=== PATIENT | male | born 1940 | race Caucasian/White ===

== ENCOUNTER 2017-12-05 16:00 | Emergency (ER) | payer MEDICARE, OTHER ==
[~2017-12-05] VITALS: Ht 190.5 cm; Wt 134.1 kg
[~2017-12-05 16:00] MED LIST: AMLO2.5T2 PO; ASPI-1265 PO; CIPR10DR LEFT EAR; FESO8TAB PO; LOSA25TA96 PO; LOVA20TA2 PO; METF850T2 PO
[2017-12-05 16:08] VITALS: BP 148/91
[2017-12-05] MEDS ORDERED: Cipro HC otic suspension 10ML bottle RIGHT EAR STA (16:30)
[2017-12-05] MEDS ORDERED: FLUC150T66 PO (17:00)
== END 2017-12-05 17:10 | disposition home or self-care (01) ==
LOC: ER 16:01
DX: H60.91 Unspecified otitis externa, right ear (principal); E78.00 Pure hypercholesterolemia, unspecified; I10 Essential (primary) hypertension; E11.9 Type 2 diabetes mellitus without complications; G89.29 Other chronic pain; Z98.890 Other specified postprocedural states; Z88.5 Allergy status to narcotic agent; Z79.82 Long term (current) use of aspirin; Z79.84 Long term (current) use of oral hypoglycemic drugs; Z79.899 Other long term (current) drug therapy
CPT/HCPCS: 99283

== ENCOUNTER 2018-11-04 16:44 | Emergency (ER) | payer MEDICARE, OTHER ==
[~2018-11-04] VITALS: Ht 193 cm; Wt 131.0 kg
[~2018-11-04 16:44] MED LIST changes: -CIPR10DR LEFT EAR; +METF-951 PO; -METF850T2 PO
[2018-11-04 16:51] VITALS: BP 133/72
[2018-11-04] MEDS ORDERED: acetaminophen 325mg tablet PO ONE ×3 (18:20→18:45)
[2018-11-04] MEDS ORDERED: LIDOcaine 5% patch TP ONE (18:20)
== END 2018-11-04 18:47 | disposition home or self-care (01) ==
LOC: ER 16:44
DX: M25.551 Pain in right hip (principal); G89.29 Other chronic pain; M54.9 Dorsalgia, unspecified; I10 Essential (primary) hypertension; E78.00 Pure hypercholesterolemia, unspecified; E11.9 Type 2 diabetes mellitus without complications; Z79.82 Long term (current) use of aspirin; Z88.6 Allergy status to analgesic agent
CPT/HCPCS: 99284

== ENCOUNTER 2018-12-29 17:10 | Observation (INO) | payer MEDICARE, OTHER ==
[~2018-12-29] VITALS: Ht 193 cm; Wt 134.0 kg
[2018-12-29 17:55] LABS: BASOPHILS % (AUTO) 0.4 % (0-1); EOSINOPHILS # (AUTO) 0.2 X10'3 (0-0.9); EOSINOPHILS % (AUTO) 3.3 % (0-6); HEMATOCRIT 43.1 % (42.0-52.0); LYMPHOCYTES # (AUTO) 2.3 X10'3 (1.1-4.8); LYMPHOCYTES % (AUTO) 31.8 % (21-51); MEAN CORPUSCULAR HEMOGLOBIN 32.3 PG (27.0-31.0); MEAN CORPUSCULAR HGB CONC 34.8 g/dL (33.0-36.5); MEAN CORPUSCULAR VOLUME 92.6 FL (78-98); MEAN PLATELET VOLUME 8.6 FL (7.4-10.4); MONOCYTES # (AUTO) 0.7 X10'3 (0-0.9); MONOCYTES % (AUTO) 9.7 % (2-12); NEUTROPHILS # (AUTO) 3.9 X10'3 (1.8-7.7); NEUTROPHILS % (AUTO) 54.8 % (42-75); PLATELET COUNT 217 X10'3 (140-440); RED BLOOD COUNT 4.66 X10'6 (4.70-6.10); RED CELL DISTRIBUTION WIDTH 13.6 % (11.5-14.5); WHITE BLOOD COUNT 7.1 X10'3 (4.5-11.0)
[2018-12-29 18:07] LABS: PARTIAL THROMBOPLASTIN TIME 26 SECONDS (22-32)
[2018-12-29 18:09] LABS: ALANINE AMINOTRANSFERASE 25 U/L (12-78); ALBUMIN 3.7 G/DL (3.4-5.0); ALBUMIN/GLOBULIN RATIO 1.1 (1.1-1.5); ALKALINE PHOSPHATASE 81 IU/L (46-116); ANION GAP 10 (8-16); ASPARTATE AMINO TRANSFERASE 16 U/L (10-37); BILIRUBIN,TOTAL 0.3 MG/DL (0.1-1.0); BLOOD UREA NITROGEN 23 MG/DL (7-18); BUN/CREATININE RATIO 12.8 (5.4-32.0); CALCIUM 8.8 MG/DL (8.5-10.1); CHLORIDE 102 MMOL/L (99-107); CREATININE 1.79 MG/DL (0.60-1.10); GLUCOSE 127 MG/DL (70-104); POTASSIUM 3.6 MMOL/L (3.5-5.1); SODIUM 139 MMOL/L (135-145); TOTAL CARBON DIOXIDE 27.3 MMOL/L (24-32); eGFR 37 ML/MIN
--- NOTE | 2018-12-29 18:37 | NUR ---
PT AMBULATED TO BATHROOM AND BACK WITH NO ASSIST AND STEADY GAIT, ROUGHLY 200 FEET
[2018-12-29] MEDS ORDERED: aspirin 325mg tablet PO ONE (19:15)
[2018-12-29] MEDS ORDERED: LANTUS SQ (19:30)
[2018-12-29] MEDS ORDERED: GABA800T11 PO (19:31)
[2018-12-29] MEDS ORDERED: OXYB5TAB16 PO (19:31)
[2018-12-29] MEDS ORDERED: LIRA0.6P2 SUBCUT (19:31)
[2018-12-29] MEDS ORDERED: METO50TA17 PO (19:31)
--- NOTE | 2018-12-29 19:55 | NUR ---
ASSISTING TELLING NEURO MD WITH SHAHANA
[2018-12-29] MEDS ORDERED: dextrose ORAL solution 15 GM/59 ML bottle PO PRN ×2 (20:15)
[2018-12-29] MEDS ORDERED: glucagon, human recombinant 1mg kit SUBCUT PRN (20:15)
[2018-12-29] MEDS ORDERED: mag hydrox/Alum hydrox/simeth 30ml oral suspension PO PRN (20:15)
[2018-12-29] MEDS ORDERED: magnesium 4gm in 100ml NS 100 ML IV PRN (20:15)
[2018-12-29] MEDS ORDERED: dextrose 50%-water 50ml dispensing syringe IV PRN ×2 (20:15)
[2018-12-29] MEDS ORDERED: magnesium 2GM in 50ml NS 50 ML IV PRN (20:15)
[2018-12-29] MEDS ORDERED: docusate sod 100mg capsule PO PRN (20:15)
[2018-12-29] MEDS ORDERED: potassium Cl 20 mEq SR tablet PO PRN (20:15)
[2018-12-29] MEDS ORDERED: MESSAGE TO PHARMACY PO ONE (20:15)
[2018-12-29] MEDS ORDERED: insulin Lispro (HumaLOG) vial - multi-dose SQ SCH (20:15)
[2018-12-29] MEDS ORDERED: ondansetron/PF 4mg/2ml inj IV PRN (20:15)
[2018-12-29] MEDS ORDERED: potassium CL 10mEq/100ml bag 100 ML IV PRN ×2 (20:15)
[2018-12-29] MEDS ORDERED: acetaminophen 325mg tablet PO PRN (20:15)
[2018-12-29] MEDS: normal saline 1000ml 1,000 ML IV SCH (20:27)
[2018-12-29 20:37] LABS: HEMOGLOBIN A1C 6.8 % (4.5-6.2)
[2018-12-29] MEDS ORDERED: insulin glargine (Lantus) pen - multi-dose SQ SCH (21:00)
[2018-12-29] MEDS ORDERED: atorvastatin 10mg tablet PO SCH (21:00)
[2018-12-29 22:00] VITALS: BP 142/87
--- NOTE | 2018-12-29 22:00 | NUR ---
I have received report from Jessie CULP and had the opportunity to ask questions and assume patient care.
[2018-12-29] MEDS: gabapentin 400mg capsule PO SCH (23:09)
[2018-12-30 02:00] VITALS: BP 138/70
[2018-12-30 05:00] VITALS: BP 142/73
--- NOTE | 2018-12-30 06:16 | NUR ---
Problems reprioritized. Patient report given, questions answered & plan of care reviewed with Judy CULP.
[2018-12-30 06:38] LABS: ALANINE AMINOTRANSFERASE 22 U/L (12-78); ALBUMIN 3.5 G/DL (3.4-5.0); ALBUMIN/GLOBULIN RATIO 1.2 (1.1-1.5); ALKALINE PHOSPHATASE 74 IU/L (46-116); ANION GAP 9 (8-16); ASPARTATE AMINO TRANSFERASE 16 U/L (10-37); BILIRUBIN,TOTAL 0.6 MG/DL (0.1-1.0); BLOOD UREA NITROGEN 20 MG/DL (7-18); BUN/CREATININE RATIO 12.9 (5.4-32.0); CALCIUM 8.4 MG/DL (8.5-10.1); CHLORIDE 103 MMOL/L (99-107); CREATININE 1.55 MG/DL (0.60-1.10); GLUCOSE 119 MG/DL (70-104); POTASSIUM 3.2 MMOL/L (3.5-5.1); SODIUM 140 MMOL/L (135-145); TOTAL PROTEIN 6.5 G/DL (6.4-8.2); eGFR 44 ML/MIN
--- NOTE | 2018-12-30 06:41 | NUR ---
received report from nawaf tejada
[2018-12-30 06:42] LABS: C-REACTIVE PROTEIN 0.07 MG/DL (0.0-0.5); CHOL/HDL RATIO 4.3 (0.00-4.99); CHOLESTEROL 125 MG/DL (0-200); HDL CHOLESTEROL 29 MG/DL (35-60); LDL CHOLESTEROL 76 MG/DL (50-100); MAGNESIUM 1.9 MG/DL (1.5-2.4); TRIGLYCERIDES 233 MG/DL (20-135)
[2018-12-30] MEDS: potassium Cl 20 mEq SR tablet PO PRN ×2 (07:27→13:53)
[2018-12-30] MEDS: gabapentin 400mg capsule PO SCH ×2 (07:29→17:07)
[2018-12-30] MEDS ORDERED: K and/or MAG REPLACEMENT MC SCH (08:00)
[2018-12-30] MEDS ORDERED: enoxaparin 40mg/0.4ml syringe SQ SCH (08:00)
[2018-12-30] MEDS ORDERED: oxybutynin 5mg tablet PO SCH ×2 (08:00→13:00)
[2018-12-30] MEDS ORDERED: aspirin 81mg tab.chew PO SCH (08:00)
[2018-12-30] MEDS ORDERED: losartan 25mg tablet PO SCH (08:00)
[2018-12-30] MEDS ORDERED: metoprolol tartrate 50mg tablet PO SCH (08:00)
[2018-12-30] MEDS: normal saline 1000ml 1,000 ML IV SCH (08:03)
[2018-12-30] MEDS ORDERED: pneumococcal 23-VAL P-sac vacc 25 mcg/0.5ml vial IMVAC ONE (10:00)
[2018-12-30] MEDS ORDERED: hyDRALAzine 10mg tablet PO PRN (10:45)
[2018-12-30] MEDS ORDERED: hydrALAZINE 20mg/ml inj. IV PRN (10:50)
[2018-12-30 11:22] VITALS: BP 142/82
[2018-12-30] MEDS ORDERED: OXYB10TA2 PO (12:11)
--- NOTE | 2018-12-30 17:14 | NUR ---
PT D/C WITH INSTRUCTIONS, UNDERSTANDING OF INSTRUCTIONS AND ALL BELONGINGS IN WHEELCHAIR ACCOMPANIED BY TO GO HOME AND F/U W/PCP NURSING STAFF MADE AN MD IMAGINING APPOINTMENT FOR PT FOR SaturdayDecember W/A CHECK IN TIME OF 1230
[2018-12-30] MEDS ORDERED: non-formulary drug (Oxybutynin Chloride (Ditropan Xl) 1 TAB) PO SCH (20:00)
== END 2018-12-30 17:15 | disposition home or self-care (01) ==
LOC: ER 17:11 → ORTHO 4S 22:22 → CMPBEDREQ 23:25
PROVIDERS: ADMIT Family Medicine; ATTEND Family Medicine
DX: R07.89 Other chest pain (principal); R13.0 Aphagia; E78.00 Pure hypercholesterolemia, unspecified; E11.9 Type 2 diabetes mellitus without complications; I10 Essential (primary) hypertension; N40.0 Benign prostatic hyperplasia without lower urinary tract symptoms; Z87.891 Personal history of nicotine dependence; E78.5 Hyperlipidemia, unspecified; Z79.82 Long term (current) use of aspirin; Z88.1 Allergy status to other antibiotic agents; G89.29 Other chronic pain
CPT/HCPCS: 36415; 70450; 71045; 80053; 80061; 82948; 83036; 83735; 84484; 85025; 85610; 85651; 85730; 86140; 87081; 90732; 92508; 92616; 93005; 93306; 93880; 96361; 96374; 96375; 97116; 97162; 97530; 99284; G0378; J0360; J7030; J1650; J1815

== ENCOUNTER 2019-11-30 19:05 | Emergency (ER) | payer MEDICARE, OTHER ==
[~2019-11-30] VITALS: Ht 193 cm; Wt 135.4 kg
[~2019-11-30 19:05] MED LIST changes: -AMLO2.5T2 PO; -FESO8TAB PO; +GABA800T11 PO; +LANTUS SQ; +LIRA0.6P2 SUBCUT; -METF-951 PO; +METO50TA17 PO; +OXYB10TA30 PO
[2019-11-30 20:21] LABS: BASOPHILS % (AUTO) 0.4 % (0-1); EOSINOPHILS % (AUTO) 0.3 % (0-6); HEMATOCRIT 42.7 % (42.0-52.0); HEMOGLOBIN 14.7 g/dl (14.0-17.9); LYMPHOCYTES # (AUTO) 1.3 X10'3 (1.1-4.8); LYMPHOCYTES % (AUTO) 14.5 % (21-51); MEAN CORPUSCULAR HEMOGLOBIN 31.9 PG (27.0-31.0); MEAN CORPUSCULAR HGB CONC 34.4 g/dL (33.0-36.5); MEAN CORPUSCULAR VOLUME 92.6 FL (78-98); MEAN PLATELET VOLUME 8.7 FL (7.4-10.4); MONOCYTES # (AUTO) 0.6 X10'3 (0-0.9); MONOCYTES % (AUTO) 6.9 % (2-12); NEUTROPHILS # (AUTO) 7.1 X10'3 (1.8-7.7); NEUTROPHILS % (AUTO) 77.9 % (42-75); PLATELET COUNT 193 X10'3 (140-440); RED BLOOD COUNT 4.61 X10'6 (4.70-6.10); RED CELL DISTRIBUTION WIDTH 13.6 % (11.5-14.5); WHITE BLOOD COUNT 9.1 X10'3 (4.5-11.0)
[2019-11-30 20:40] LABS: ALANINE AMINOTRANSFERASE 29 U/L (12-78); ALBUMIN 3.4 G/DL (3.4-5.0); ALBUMIN/GLOBULIN RATIO 1.1 (1.1-1.5); ALKALINE PHOSPHATASE 82 IU/L (46-116); ANION GAP 14 (8-16); ASPARTATE AMINO TRANSFERASE 21 U/L (10-37); BILIRUBIN,TOTAL 0.6 MG/DL (0.1-1.0); BLOOD UREA NITROGEN 20 MG/DL (7-18); BUN/CREATININE RATIO 11.2 (5.4-32.0); CALCIUM 8.2 MG/DL (8.5-10.1); CHLORIDE 105 MMOL/L (99-107); CREATININE 1.78 MG/DL (0.60-1.10); GLUCOSE 198 MG/DL (70-104); LIPASE 197 U/L (73-393); POTASSIUM 3.9 MMOL/L (3.5-5.1); SODIUM 141 MMOL/L (135-145); TOTAL CARBON DIOXIDE 22.3 MMOL/L (24-32); TOTAL PROTEIN 6.4 G/DL (6.4-8.2); eGFR 37 ML/MIN
[2019-11-30] MEDS ORDERED: loperamide 2mg capsule PO ONE (20:45)
[2019-11-30] MEDS ORDERED: normal saline 1000ML IV soln IVB ONE ×2 (20:45→22:05)
[2019-11-30 21:04] LABS: TROPONIN I < 0.04 NG/ML (0.0-0.05)
[2019-11-30] MEDS ORDERED: ONDA4TAB6 PO (22:12)
[2019-11-30] MEDS ORDERED: LOPE-144 PO (22:12)
[2019-11-30 22:30] LABS: CLARITY,URINE SLIGHTLY CLOUDY (Clear); COLOR,URINE YELLOW (Yellow); GLUCOSE, URINE NEGATIVE (Neg); KETONES,URINE 15 mg/dl (Neg); LEUKOCYTE ESTERASE ,URINE NEGATIVE (Neg); NITRITES, URINE NEGATIVE (Neg); OCCULT BLOOD,URINE NEGATIVE (Neg); PROTEIN,URINE 30 mg/dl (Neg); UA COLLECTION TYPE CLN CATCH MIDSTREAM; UROBILINOGEN,URINE 0.2 E.U/dL (0.2-1.0)
[2019-11-30 22:37] LABS: BACTERIA,URINE NONE SEEN /HPF (Neg); MUCUS STRANDS MANY /LPF (Neg); RBC,URINE NONE SEEN /HPF (0-2); SQUAMOUS EPITHELIAL CELL,UR MANY /LPF (FEW); WBC,URINE 0-4 /HPF (0-4)
[2019-11-30 22:50] VITALS: BP 164/87
== END 2019-11-30 22:55 | disposition home or self-care (01) ==
LOC: ER 19:06
DX: R19.7 Diarrhea, unspecified (principal); E86.0 Dehydration; E78.00 Pure hypercholesterolemia, unspecified; I10 Essential (primary) hypertension; E11.9 Type 2 diabetes mellitus without complications; G89.29 Other chronic pain; Z98.890 Other specified postprocedural states; Z72.89 Other problems related to lifestyle; Z88.5 Allergy status to narcotic agent; Z79.82 Long term (current) use of aspirin; Z79.4 Long term (current) use of insulin; Z79.899 Other long term (current) drug therapy
CPT/HCPCS: 36415; 80053; 81001; 83690; 84484; 85025; 93005; 96360; 99284; J7030

== ENCOUNTER 2020-04-11 17:41 | Inpatient (IN) | payer MEDICARE, OTHER ==
[~2020-04-11] VITALS: Ht 198.1 cm; Wt 134.0 kg
[~2020-04-11 17:41] MED LIST changes: +APIX5TAB3 PO; -ASPI-1265 PO; +ATOR40TA71 PO; +ATRNS; +DEC4T PO; +DICL100G30 TOP; +INSU100V43; -LOSA25TA96 PO; -LOVA20TA2 PO; -METO50TA17 PO; +NORT10CA81 PO; -OXYB10TA30 PO; +PANT-47 PO; +PROP10TA10 PO; +tamsulosin capsule PO
[2020-04-11] MEDS ORDERED: ipratropium/albuterol 3ml nebule NEB ONE (18:35)
[2020-04-11 18:46] LABS: BASOPHILS % (AUTO) 0.3 % (0-1); EOSINOPHILS % (AUTO) 0 % (0-6); HEMATOCRIT 45.4 % (42.0-52.0); HEMOGLOBIN 15.4 g/dl (14.0-17.9); LYMPHOCYTES # (AUTO) 0.7 X10'3 (1.1-4.8); LYMPHOCYTES % (AUTO) 8.4 % (21-51); MEAN CORPUSCULAR HEMOGLOBIN 31.1 PG (27.0-31.0); MEAN CORPUSCULAR HGB CONC 33.8 g/dL (33.0-36.5); MEAN CORPUSCULAR VOLUME 91.8 FL (78-98); MEAN PLATELET VOLUME 8.4 FL (7.4-10.4); MONOCYTES # (AUTO) 0.5 X10'3 (0-0.9); MONOCYTES % (AUTO) 5.6 % (2-12); NEUTROPHILS # (AUTO) 7.3 X10'3 (1.8-7.7); NEUTROPHILS % (AUTO) 85.7 % (42-75); PLATELET COUNT 188 X10'3 (140-440); RED BLOOD COUNT 4.95 X10'6 (4.70-6.10); RED CELL DISTRIBUTION WIDTH 13.7 % (11.5-14.5); WHITE BLOOD COUNT 8.6 X10'3 (4.5-11.0)
[2020-04-11 19:05] LABS: ABG BASE EXCESS -0.6 mmol/L (-2.0-2.0); ABG OXYGEN SATURATION 96.1 % (94-97); ABG PCO2 (T) 32.9 mmHg (35.0-48.0); ABG PO2 (T) 92.7 mmHg (75.0-100.0); ALLEN'S TEST POSITIVE; FCOHb 0.8 % (0.0-3.9); FO2Hb 95.3 % (94-97); PATIENT TEMPERATURE 38.5; TOTAL HEMOGLOBIN 15.3 G/dl (14.0-18.0)
[2020-04-11 19:09] LABS: ALANINE AMINOTRANSFERASE 71 U/L (12-78); ALBUMIN 2.7 G/DL (3.4-5.0); ALBUMIN/GLOBULIN RATIO 0.6 (1.1-1.5); ALKALINE PHOSPHATASE 94 IU/L (46-116); ANION GAP 10 (8-16); ASPARTATE AMINO TRANSFERASE 46 U/L (10-37); BILIRUBIN,TOTAL 0.9 MG/DL (0.1-1.0); BLOOD UREA NITROGEN 26 MG/DL (7-18); BUN/CREATININE RATIO 17.9 (5.4-32.0); CALCIUM 8.3 MG/DL (8.5-10.1); CHLORIDE 98 MMOL/L (99-107); CREATININE 1.45 MG/DL (0.60-1.10); GLUCOSE 206 MG/DL (70-104); POTASSIUM 3.8 MMOL/L (3.5-5.1); SODIUM 133 MMOL/L (135-145); TOTAL PROTEIN 7.1 G/DL (6.4-8.2); eGFR 47 ML/MIN
--- NOTE | 2020-04-11 19:45 | NUR ---
dr. rousseau at bedside assessing patient patient provided a pitcher of ice water no observable s/s of acute respiratoruy distress at this time will continue to monitor
[2020-04-11] MEDS ORDERED: potassium CL 10mEq/100ml bag 100 ML IV PRN ×2 (20:10)
[2020-04-11] MEDS ORDERED: mag hydrox/Alum hydrox/simeth 30ml oral suspension PO PRN (20:10)
[2020-04-11] MEDS ORDERED: acetaminophen 325mg tablet PO PRN (20:10)
[2020-04-11] MEDS ORDERED: magnesium Cl slow-release 64mg tablet PO PRN (20:10)
[2020-04-11] MEDS ORDERED: magnesium hydroxide 30ml (MOM) UD suspension PO PRN (20:10)
[2020-04-11] MEDS ORDERED: magnesium 4gm in 100ml NS 100 ML IV PRN (20:10)
[2020-04-11] MEDS ORDERED: magnesium 2GM in 50ml NS 50 ML IV PRN (20:10)
[2020-04-11] MEDS ORDERED: ondansetron/PF 4mg/2ml inj IV PRN (20:10)
[2020-04-11] MEDS ORDERED: potassium Cl 20 mEq SR tablet PO PRN ×2 (20:10)
[2020-04-11 22:16] VITALS: BP 176/95
[2020-04-12] VITALS (10 sets, daily range): BP systolic 136–199; BP diastolic 73–103
[2020-04-12] MEDS ORDERED: dexamethasone 4mg/ml inj IV SCH (02:00)
--- NOTE | 2020-04-12 02:35 | NUR ---
Administered 6mg of Dexamethasone. Barcode would not scan, verified by name and dosage on medication package against patient eMAR. Will notify pharmacy.
[2020-04-12] MEDS ORDERED: labetalol 20mg/4ml (5mg/ml) syringe IV ONE (02:40)
[2020-04-12] MEDS ORDERED: dextrose ORAL solution 15 GM/59 ML bottle PO PRN ×2 (02:45)
[2020-04-12] MEDS ORDERED: MESSAGE TO PHARMACY PO ONE (02:45)
[2020-04-12] MEDS ORDERED: glucagon, human recombinant 1mg kit SUBCUT PRN (02:45)
[2020-04-12] MEDS ORDERED: dextrose 50%-water 50ml dispensing syringe IV PRN ×2 (02:45)
--- NOTE | 2020-04-12 03:12 | NUR ---
Blood pressure 212/98, notified. Gave 10mg of Labetalol IV as ordered. At 15 minutes blood pressure at 183/94. Patient denies chest pain, shortness of breath or headache. Will continue to monitor. Addendum: 04/12/20 at 0316 by Isma Houston RN Blood pressure 212/98, notified. Gave 10mg of Labetalol IV as ordered. At 15 minutes post medication administration, blood pressure at 183/94. Patient denies chest pain, shortness of breath or headache. Will continue to monitor.
[2020-04-12] MEDS: hydrALAZINE 20mg/ml inj. IV PRN ×2 (05:43→12:59)
--- NOTE | 2020-04-12 06:33 | NUR ---
Problems reprioritized. Patient report given, questions answered & plan of care reviewed with Hazel CULP.
--- NOTE | 2020-04-12 06:45 | NUR ---
Patient in room PCU 3008. I have received report from Serenity CULP and had the opportunity to ask questions and assume patient care.
--- NOTE | 2020-04-12 06:48 | NUR ---
PAGER ID: [phone] MESSAGE: [phone] Sunny Harkins Covshanae dx. Nursing unable to get blood draws per report or blood cultures. Do you want a midline inserted? Hazel CULP [id number]
--- NOTE | 2020-04-12 07:52 | NUR ---
PAGER ID: [phone] MESSAGE: [phone] Sunny Harkins dx. Nursing unable to get blood draws per report or blood cultures. Do you want a midline inserted? Hazel CULP [id number]
[2020-04-12] MEDS ORDERED: FLO0.4C PO (07:59)
[2020-04-12] MEDS: methylPREDNISolone sod succ 125mg/2ml vial IV SCH ×2 (08:00→20:34)
[2020-04-12] MEDS: K and/or MAG REPLACEMENT MC SCH ×2 (08:00→20:00)
[2020-04-12] MEDS: apixaban 5mg tablet PO SCH ×2 (08:00→20:25)
--- NOTE | 2020-04-12 08:23 | NUR ---
Page sent to RT [phone], Torin Correa. 02 requirements increased. sating 88-90% on 6/L via NC. Please assess, no hx of COPD.
--- NOTE | 2020-04-12 08:31 | NUR ---
PAGER ID: [phone] MESSAGE: [id number], Torin Correa. 02 requirements increased. sating 88-90% on 6/L via NC. Hazel CULP [id number]
[2020-04-12 08:59] LABS: CLARITY,URINE CLEAR (Clear); COLOR,URINE YELLOW (Yellow); GLUCOSE, URINE >=1000 mg/dl (Neg); KETONES,URINE 40 mg/dl (Neg); LEUKOCYTE ESTERASE ,URINE NEGATIVE (Neg); NITRITES, URINE NEGATIVE (Neg); OCCULT BLOOD,URINE LARGE (Neg); PROTEIN,URINE 100 mg/dl (Neg)
[2020-04-12 09:05] LABS: UA COLLECTION TYPE CLN CATCH MIDSTREAM
[2020-04-12 09:11] LABS: BACTERIA,URINE FEW /HPF (Neg); CELLULAR CAST 0-4 /LPF (NEGATIVE); MUCUS STRANDS NONE SEEN /LPF (Neg); RBC,URINE NONE SEEN /HPF (0-2); SQUAMOUS EPITHELIAL CELL,UR FEW /LPF (FEW); WBC,URINE 0-4 /HPF (0-4)
[2020-04-12] MEDS: insulin Lispro (HumaLOG) vial - multi-dose SQ SCH ×4 (09:35→23:27)
[2020-04-12] MEDS: pantoprazole 40mg Tablet.DR PO SCH (09:42)
[2020-04-12] MEDS: gabapentin 400mg capsule PO SCH ×3 (09:42→23:11)
[2020-04-12] MEDS: tamsulosin 0.4mg capsule PO SCH (09:42)
[2020-04-12] MEDS: atorvastatin 20mg tablet PO SCH (09:42)
--- NOTE | 2020-04-12 10:43 | NUR ---
DM consult, written DM education provided 04/05. Additional education not indicated at this time. will follow up on date above for initial nutrition assessment. Addendum: 04/12/20 at [address] Amended: Links added.
[2020-04-12] MEDS ORDERED: lisinopril 10 MG tablet PO ONE (11:40)
[2020-04-12 12:47] LABS: BASOPHILS % (AUTO) 0.1 % (0-1); EOSINOPHILS % (AUTO) 0 % (0-6); HEMATOCRIT 42.4 % (42.0-52.0); HEMOGLOBIN 14.4 g/dl (14.0-17.9); LYMPHOCYTES # (AUTO) 0.4 X10'3 (1.1-4.8); LYMPHOCYTES % (AUTO) 3.5 % (21-51); MEAN CORPUSCULAR HEMOGLOBIN 31.2 PG (27.0-31.0); MEAN CORPUSCULAR HGB CONC 33.9 g/dL (33.0-36.5); MEAN PLATELET VOLUME 8.8 FL (7.4-10.4); MONOCYTES # (AUTO) 0.3 X10'3 (0-0.9); MONOCYTES % (AUTO) 2.4 % (2-12); NEUTROPHILS # (AUTO) 9.9 X10'3 (1.8-7.7); PLATELET COUNT 192 X10'3 (140-440); RED BLOOD COUNT 4.61 X10'6 (4.70-6.10); RED CELL DISTRIBUTION WIDTH 13.7 % (11.5-14.5); WHITE BLOOD COUNT 10.6 X10'3 (4.5-11.0)
--- NOTE | 2020-04-12 12:52 | NUR ---
PAGER ID: [phone] MESSAGE: [phone] Torin Correa, increased SOB noted, saturations 85% and increased WOB, Pt. placed on non rebreather, sating 88-90%. RT called. Hazel CULP [id number]
[2020-04-12 13:04] LABS: ALANINE AMINOTRANSFERASE 56 U/L (12-78); ALBUMIN 2.3 G/DL (3.4-5.0); ALBUMIN/GLOBULIN RATIO 0.5 (1.1-1.5); ALKALINE PHOSPHATASE 88 IU/L (46-116); ANION GAP 14 (8-16); ASPARTATE AMINO TRANSFERASE 40 U/L (10-37); BILIRUBIN,TOTAL 0.9 MG/DL (0.1-1.0); BLOOD UREA NITROGEN 28 MG/DL (7-18); BUN/CREATININE RATIO 17.6 (5.4-32.0); CALCIUM 8.3 MG/DL (8.5-10.1); CHLORIDE 98 MMOL/L (99-107); CREATININE 1.59 MG/DL (0.60-1.10); GLUCOSE 285 MG/DL (70-104); LACTATE DEHYDROGENASE 343 U/L (85-227); MAGNESIUM 2.3 MG/DL (1.5-2.4); POTASSIUM 4.1 MMOL/L (3.5-5.1); SODIUM 134 MMOL/L (135-145); TOTAL CARBON DIOXIDE 21.8 MMOL/L (24-32); TOTAL PROTEIN 6.8 G/DL (6.4-8.2); eGFR 42 ML/MIN
--- NOTE | 2020-04-12 13:07 | NUR ---
Patient placed on 12L high flow, RR 23, Sp02 91%, patient reports feeling less SOB at the moment. PRN hydralazine given, new blood pressure 153/82.
--- NOTE | 2020-04-12 13:17 | NUR ---
5F DUAL LUMEN MIDLINE PLACED WITH ULTRASOUND GUIDANCE, TIP ENDS MID-AXILLARY X'S 1 ATTEMPT WITH SUCCESS. LINE ASPIRATES BLOOD AND FLUSHES WITHOUT DIFFICULTY. UNABLE TO SAVE PICTURE FOR CHART HE IS A COVID PT. SUKUMARCHAPIN PICC RN
--- NOTE | 2020-04-12 15:18 | NUR ---
Patient remains sating from 91-93% on 12L high flow. Pt. is not in any noticable respiratory distress. BP is stable at 153/86. Pt. remains afebrile. Attempted to feed patient jello and he began desating into high 80's. Pt. took 2 mins to recover. Fluids encouraged. Will continue to monitor closely. Will ask for TKO fluids to keep midline patient. Urine output has been adequate thus far.
--- NOTE | 2020-04-12 15:44 | NUR ---
PAGER ID: [phone] MESSAGE: [phone] Torin Correa, can we get an order for IV fluids of TKO to keep midline patent. NA was 134. Hazel CULP [id number]
[2020-04-12] MEDS: normal saline 1000ml 1,000 ML IV SCH (16:43)
--- NOTE | 2020-04-12 17:02 | NUR ---
After taking medications, oxygen saturations dropped to 85%, not recovering quickly. Noted a good pleth. Increased oxygen to 13L high flow, patient is now maintaining oxygen saturations at 90-91 on 13L high flow. Pt. denies dyspnea. Pt. does not appear to be in distress and offers no complaints.
--- NOTE | 2020-04-12 17:05 | NUR ---
Room cleaned, linens changed. Pt. has no complaints. NS running at 20 ml/HR to maintain patency of midline. Will continue to monitor closely.
--- NOTE | 2020-04-12 17:49 | NUR ---
Patient was sleeping soundy during last rounds but oxygen saturations dropped to 82%, pt. denies feeling short of breath, RR 26. Good pleth noted. Oxygen increased to 15L via NC. Oxygen saturations holding at 93%, RR 21, respirations equal and unlabored currently. Will continue to monitor closely. notified.
--- NOTE | 2020-04-12 17:53 | NUR ---
PAGER ID: [phone] MESSAGE: [phone] Torin Correa, saturations dropped into low 80's, patient is now maxed out on 15L high flow. Sating low 90's now. LAUREN Oliva RN
--- NOTE | 2020-04-12 18:20 | NUR ---
Problems reprioritized. Patient report given, questions answered & plan of care reviewed with Isma RN and Ness RN. Dr. Haddad just left room and didn't feel patient was in distress. MD is aware that the patient may need to transfer to ICU if he does not maintain his saturations tonight. Pt. currently sating 90% on 15L high flow.
--- NOTE | 2020-04-12 18:30 | NUR ---
Patient in room PCU 3008. I have received report from ROBBI Oliva and had the opportunity to ask questions and assume patient care. Patient resting in bed. In no apparent distress other than decreased SPO2 of high 80's on 15L high flow. Safety measures in place, bed in low and locked position. Call light and personal items within reach. Will continue to monitor throughout shift.
[2020-04-12] MEDS ORDERED: apixaban 5mg tablet PO SCH (20:00)
[2020-04-12] MEDS ORDERED: propranolol 10mg tablet PO SCH (20:00)
[2020-04-12] MEDS: propranolol 10mg tablet PO SCH (20:25)
[2020-04-12] MEDS ORDERED: nortriptyline 10mg capsule PO SCH (21:00)
--- NOTE | 2020-04-12 21:00 | NUR ---
Patient pulse tachy, SPO2 in mid to high 80's at 15L High flow. RT notified.
[2020-04-12] MEDS: insulin glargine (Lantus) pen - multi-dose SQ SCH (23:20)
[2020-04-13] VITALS (12 sets, daily range): BP systolic 131–167; BP diastolic 68–93
--- NOTE | 2020-04-13 02:49 | NUR ---
Paged Dr. Pisano, RE: Torin Correa Rm [id number]. LAUREN- Jl pt. Respiratory failure. Pt. started day shift 04/12 on 5L NC. At start of night clerk auditor patient was on 15L high flow. At this time, patient is on high flow tree on 50L @ 100%, SPO2 93%. Isma [id number]
--- NOTE | 2020-04-13 03:59 | NUR ---
Paged respiratory. RE: Torin Correa, rm [id number]. FYI Increased O2 to 60L at 100% SPO2 at 89-91%
--- NOTE | 2020-04-13 04:25 | NUR ---
Paged Dr. Pisano. RE: Torin Correa RM [phone]. Patient SP02 at 89-90% on 60L at 100%. Please advise. Isma [phone] Dr. Pisano returned call within five minutes, stated she was okay with keeping SPO2 between 88-90%. She advised to monitor for an hour and let her know if patient cannot maintain these SPO2 parameters, at which time she will contact ICU and discuss admission to the unit.
[2020-04-13 05:09] LABS: BASOPHILS % (AUTO) 0 % (0-1); EOSINOPHILS % (AUTO) 0 % (0-6); HEMATOCRIT 41.1 % (42.0-52.0); HEMOGLOBIN 13.9 g/dl (14.0-17.9); LYMPHOCYTES # (AUTO) 0.3 X10'3 (1.1-4.8); LYMPHOCYTES % (AUTO) 2.9 % (21-51); MEAN CORPUSCULAR HEMOGLOBIN 31.2 PG (27.0-31.0); MEAN CORPUSCULAR HGB CONC 33.9 g/dL (33.0-36.5); MEAN CORPUSCULAR VOLUME 91.9 FL (78-98); MEAN PLATELET VOLUME 8.9 FL (7.4-10.4); MONOCYTES # (AUTO) 0.5 X10'3 (0-0.9); MONOCYTES % (AUTO) 3.9 % (2-12); NEUTROPHILS # (AUTO) 11.1 X10'3 (1.8-7.7); NEUTROPHILS % (AUTO) 93.2 % (42-75); PLATELET COUNT 201 X10'3 (140-440); RED BLOOD COUNT 4.47 X10'6 (4.70-6.10); RED CELL DISTRIBUTION WIDTH 13.5 % (11.5-14.5); WHITE BLOOD COUNT 11.9 X10'3 (4.5-11.0)
--- NOTE | 2020-04-13 05:17 | NUR ---
Patient SPO2 at 87% on 60L at 100%. MD to be notified. Placed non-rebreather on as well, SPO2 maintaining at 90%. Will continue to monitor awaiting MD orders.
--- NOTE | 2020-04-13 05:21 | NUR ---
notified pt requiring 60% O2 at 100% FIO2 plus NRB in order to keep sats at 88%. Dr. Pisano contacted June to come look at the patient and Stat ABG order placed.
[2020-04-13 05:22] LABS: ALANINE AMINOTRANSFERASE 45 U/L (12-78); ALBUMIN 2.1 G/DL (3.4-5.0); ALBUMIN/GLOBULIN RATIO 0.5 (1.1-1.5); ALKALINE PHOSPHATASE 79 IU/L (46-116); ANION GAP 9 (8-16); ASPARTATE AMINO TRANSFERASE 32 U/L (10-37); BILIRUBIN,TOTAL 0.7 MG/DL (0.1-1.0); BLOOD UREA NITROGEN 38 MG/DL (7-18); BUN/CREATININE RATIO 23.3 (5.4-32.0); C-REACTIVE PROTEIN 14.16 MG/DL (0.0-0.5); CALCIUM 8.2 MG/DL (8.5-10.1); CHLORIDE 100 MMOL/L (99-107); CREATININE 1.63 MG/DL (0.60-1.10); GLUCOSE 274 MG/DL (70-104); LACTATE DEHYDROGENASE 336 U/L (85-227); MAGNESIUM 2.5 MG/DL (1.5-2.4); POTASSIUM 3.9 MMOL/L (3.5-5.1); SODIUM 135 MMOL/L (135-145); TOTAL CARBON DIOXIDE 26.3 MMOL/L (24-32); TOTAL PROTEIN 6.3 G/DL (6.4-8.2); eGFR 41 ML/MIN
[2020-04-13 05:41] LABS: ABG BASE EXCESS 0.4 mmol/L (-2.0-2.0); ABG HCO3 23.5 mmol/L (22.0-26.0); ABG OXYGEN SATURATION 88.5 % (94-97); ABG PCO2 (T) 33.7 mmHg (35.0-48.0); ABG PO2 (T) 54.6 mmHg (75.0-100.0); ALLEN'S TEST POSITIVE; FLOW 60 L/min; FMetHb 0.3 % (0.0-1.5); FO2Hb 88.2 % (94-97); PATIENT TEMPERATURE 37.1; TOTAL HEMOGLOBIN 14.8 G/dl (14.0-18.0)
--- NOTE | 2020-04-13 05:55 | NUR ---
Radiology paged for stat xray.
--- NOTE | 2020-04-13 06:13 | NUR ---
Problems reprioritized. Patient report given, questions answered & plan of care reviewed with ROBBI Oliva. Patient resting in bed, high amounts of oxygenation needed at this time. MD aware. Radiology at bedside for stat x-ray, plans for transfer to the unit if space allows. Safety measures in place, bed in low and locked position. Continuous monitoring of vitals and SPO2. Will continue to monitor for remainder of shift.
--- NOTE | 2020-04-13 06:29 | NUR ---
Problems reprioritized. Patient report given, questions answered & plan of care reviewed with ROBBI Slaughter.
--- NOTE | 2020-04-13 07:18 | NUR ---
Patient in room PCU 3008. I have received report from Isma CULP and Ness RN and had the opportunity to ask questions and assume patient care.
[2020-04-13] MEDS: propranolol 10mg tablet PO SCH ×2 (07:34→20:02)
[2020-04-13] MEDS: apixaban 5mg tablet PO SCH ×2 (07:34→20:02)
[2020-04-13] MEDS: atorvastatin 20mg tablet PO SCH (07:34)
[2020-04-13] MEDS: methylPREDNISolone sod succ 125mg/2ml vial IV SCH ×2 (07:34→20:18)
[2020-04-13] MEDS: tamsulosin 0.4mg capsule PO SCH (07:34)
[2020-04-13] MEDS: lisinopril 10 MG tablet PO SCH (07:37)
[2020-04-13] MEDS: gabapentin 400mg capsule PO SCH ×2 (07:37→16:55)
[2020-04-13] MEDS: pantoprazole 40mg Tablet.DR PO SCH (07:37)
[2020-04-13] MEDS: insulin Lispro (HumaLOG) vial - multi-dose SQ SCH ×4 (07:58→21:50)
[2020-04-13] MEDS: K and/or MAG REPLACEMENT MC SCH ×2 (08:00→20:00)
--- NOTE | 2020-04-13 08:07 | NUR ---
Upon assessment, patient is resting quit comfortably actually. RR 17, HR 73, sp02 91% on 65L/100% fi02. BP decreased after administration of BP meds. Current BP is 159/90. Pt. offers no complaints, will continue to monitor closely.
[2020-04-13] MEDS ORDERED: cefepime 1GM in D5W 50mL 50 ML IV SCH (09:30)
[2020-04-13] MEDS ORDERED: cefepime 1GM/NS ADD-VANTAGE 100 ML IV ONE (10:05)
[2020-04-13] MEDS: linezolid 600mg tablet PO SCH ×2 (10:28→20:08)
--- NOTE | 2020-04-13 11:41 | NUR ---
DM consult: Patient's A1c already addressed, see below. DM consult, written DM education provided 04/05. Additional education not indicated at this time. will follow up on date above for initial nutrition assessment. Addendum: 04/13/20 at [address] Amended: Links added.
--- NOTE | 2020-04-13 12:34 | NUR ---
Patient has been sating low 90's on 65L/100% fi02. Pt. does not appear to be in any distress but he does have desaturations with speaking or moving. Pt. offers no complaints. Good fluid intake and urine output noted thus far. Will continue to monitor closely.
--- NOTE | 2020-04-13 14:29 | NUR ---
Problems reprioritized. Patient report given, questions answered & plan of care reviewed with Gurinder CULP. RT notified to assist with transporting patient.
--- NOTE | 2020-04-13 15:26 | NUR ---
Patient was transported to ICU, accompanied by primary RN, patient social worker palliative care and RT. Patient tolerated transportation well but did state that he felt worse than prior to transport. All precautions discussed with transporting members prior to transfer and precautions were followed. Pt. wore a non rebreather, a surgical mask and a face shield. Gruinder assumed care. Patient thanked staff for care provided.
--- NOTE | 2020-04-13 18:33 | NUR ---
Problems reprioritized. Patient report given, questions answered & plan of care reviewed with Mac RN.
--- NOTE | 2020-04-13 19:00 | NUR ---
RN Note -Pt is requesting Jensen catheter because condom catheter is not staying in place and he says it is difficult for him to use the urinal because he is weak. Pt is frustrated that Jensen catheter was removed. Explained risk for infection to pt.
[2020-04-13] MEDS: cefepime 1GM/NS ADD-VANTAGE 100 ML IV SCH (20:02)
--- NOTE | 2020-04-13 21:00 | NUR ---
RN Note -Pt's insulin was not in room and was not located on PCU. Had to request insulin from pharmacy and then go to pharmacy to get it. Pt had not eaten very much of his dinner due to poor appetite, so blood sugar was covered at bedtime with nighttime dose.
[2020-04-13] MEDS: insulin glargine (Lantus) pen - multi-dose SQ SCH (21:48)
[2020-04-14] VITALS (23 sets, daily range): BP systolic 121–151; BP diastolic 64–88
[2020-04-14] MEDS: gabapentin 400mg capsule PO SCH ×2 (00:16→08:34)
[2020-04-14 03:48] LABS: BASOPHILS % (AUTO) 0.2 % (0-1); EOSINOPHILS % (AUTO) 0 % (0-6); HEMATOCRIT 41.1 % (42.0-52.0); HEMOGLOBIN 13.8 g/dl (14.0-17.9); LYMPHOCYTES # (AUTO) 0.4 X10'3 (1.1-4.8); LYMPHOCYTES % (AUTO) 3.1 % (21-51); MEAN CORPUSCULAR HEMOGLOBIN 31.1 PG (27.0-31.0); MEAN CORPUSCULAR HGB CONC 33.5 g/dL (33.0-36.5); MEAN CORPUSCULAR VOLUME 92.6 FL (78-98); MONOCYTES # (AUTO) 0.4 X10'3 (0-0.9); MONOCYTES % (AUTO) 3.6 % (2-12); NEUTROPHILS # (AUTO) 11.6 X10'3 (1.8-7.7); NEUTROPHILS % (AUTO) 93.1 % (42-75); PLATELET COUNT 226 X10'3 (140-440); RED BLOOD COUNT 4.43 X10'6 (4.70-6.10); RED CELL DISTRIBUTION WIDTH 13.4 % (11.5-14.5); WHITE BLOOD COUNT 12.5 X10'3 (4.5-11.0)
[2020-04-14 04:06] LABS: ALANINE AMINOTRANSFERASE 51 U/L (12-78); ALBUMIN/GLOBULIN RATIO 0.5 (1.1-1.5); ALKALINE PHOSPHATASE 81 IU/L (46-116); ANION GAP 11 (8-16); ASPARTATE AMINO TRANSFERASE 43 U/L (10-37); BILIRUBIN,TOTAL 0.5 MG/DL (0.1-1.0); BLOOD UREA NITROGEN 53 MG/DL (7-18); BUN/CREATININE RATIO 30.6 (5.4-32.0); C-REACTIVE PROTEIN 6.34 MG/DL (0.0-0.5); CHLORIDE 100 MMOL/L (99-107); CREATININE 1.73 MG/DL (0.60-1.10); GLUCOSE 338 MG/DL (70-104); MAGNESIUM 2.6 MG/DL (1.5-2.4); POTASSIUM 4.1 MMOL/L (3.5-5.1); SODIUM 135 MMOL/L (135-145); TOTAL CARBON DIOXIDE 24.3 MMOL/L (24-32); TOTAL PROTEIN 6.1 G/DL (6.4-8.2); eGFR 38 ML/MIN
--- NOTE | 2020-04-14 06:48 | NUR ---
Patient in room CICU 2005. I have received report from ROBBI Saldaña and had the opportunity to ask questions and assume patient care.
[2020-04-14] MEDS: K and/or MAG REPLACEMENT MC SCH ×2 (07:02→20:00)
--- NOTE | 2020-04-14 08:15 | NUR ---
Blood sugar 365. Meter right after reading and before being able to hit accept.
[2020-04-14] MEDS: methylPREDNISolone sod succ 125mg/2ml vial IV SCH ×2 (08:34→20:49)
[2020-04-14] MEDS: cefepime 1GM/NS ADD-VANTAGE 100 ML IV SCH ×2 (08:34→20:50)
[2020-04-14] MEDS: propranolol 10mg tablet PO SCH ×2 (08:34→20:49)
[2020-04-14] MEDS: linezolid 600mg tablet PO SCH ×2 (08:34→21:15)
[2020-04-14] MEDS: pantoprazole 40mg Tablet.DR PO SCH (08:35)
[2020-04-14] MEDS: atorvastatin 20mg tablet PO SCH (08:35)
[2020-04-14] MEDS: tamsulosin 0.4mg capsule PO SCH (08:35)
[2020-04-14] MEDS: apixaban 5mg tablet PO SCH ×2 (08:35→20:49)
[2020-04-14] MEDS: lisinopril 10 MG tablet PO SCH (08:35)
[2020-04-14] MEDS: insulin Lispro (HumaLOG) vial - multi-dose SQ SCH ×3 (09:22→20:14)
--- NOTE | 2020-04-14 14:37 | NUR ---
Made 4 attempted to get Corpac. Patient refusing for more attempts. Will see if oncoming noc nurse can help.
--- NOTE | 2020-04-14 15:42 | NUR ---
Initial: Pt admit with acute resp failure and COVID. Pt currently on a CHO controlled diet documented to have refused most meals not meeting estimated nutrient needs. D/w MD at critical care rounds recommendation for ONS given poor PO intake. MD ordered Corpak placement for nutrition. Per RN notes four [address] Corpak. TF recommendations below for once Corpak placed. Pt with elevated BG levels likely r/t steroid rx, pt on glycemic protocol. No documented LBM, PRN bowel care available. Will continue to follow closely. Recommendations: 1) Consider diet liberalization to regular given poor PO intake 2) ONS if unable to place Corpak 3) Once Corpak placed and able to use, recommend continuous Vital AF with goal rate of 90 mL/hr. To begin at 20 mL/hr and advance by 20 mL Q8H as tolerated to goal rate 4) Once TF, additional water flush per MD given low serum Na 5) Once TF, prealbumin q Saturday/, daily weights 6) Routine bowel care Addendum: 04/14/20 at [address] Amended: Links added.
[2020-04-14] MEDS: normal saline 1000ml 1,000 ML IV SCH (15:50)
[2020-04-14 15:51] LABS: ABG BASE EXCESS -0.9 mmol/L (-2.0-2.0); ABG HCO3 22.1 mmol/L (22.0-26.0); ABG OXYGEN SATURATION 89.3 % (94-97); ABG PCO2 (T) 32.1 mmHg (35.0-48.0); ABG PO2 (T) 58.4 mmHg (75.0-100.0); ALLEN'S TEST POSITIVE; FLOW 70 L/min; FO2Hb 89.3 % (94-97); TOTAL HEMOGLOBIN 14.9 G/dl (14.0-18.0)
--- NOTE | 2020-04-14 18:40 | NUR ---
Problems reprioritized. Patient report given, questions answered & plan of care reviewed with Piotr RN.
--- NOTE | 2020-04-14 18:50 | NUR ---
RN Note -Pt refusing further attempts to place corpak
[2020-04-14] MEDS: lactobacillus rhamnosus 10,000 MMU CELLS/CAPSULE PO SCH (20:49)
[2020-04-14] MEDS: gabapentin 300mg capsule PO SCH (20:49)
[2020-04-14] MEDS: insulin glargine (Lantus) pen - multi-dose SQ SCH (21:41)
[2020-04-15] VITALS (24 sets, daily range): BP systolic 115–164; BP diastolic 64–123
[2020-04-15 02:59] LABS: BASOPHILS % (AUTO) 0.2 % (0-1); EOSINOPHILS % (AUTO) 0 % (0-6); HEMATOCRIT 41.3 % (42.0-52.0); LYMPHOCYTES # (AUTO) 0.5 X10'3 (1.1-4.8); MEAN CORPUSCULAR HEMOGLOBIN 31.3 PG (27.0-31.0); MEAN CORPUSCULAR HGB CONC 33.9 g/dL (33.0-36.5); MEAN CORPUSCULAR VOLUME 92.3 FL (78-98); MONOCYTES # (AUTO) 0.6 X10'3 (0-0.9); MONOCYTES % (AUTO) 4.4 % (2-12); NEUTROPHILS # (AUTO) 11.7 X10'3 (1.8-7.7); NEUTROPHILS % (AUTO) 91.4 % (42-75); PLATELET COUNT 239 X10'3 (140-440); RED BLOOD COUNT 4.47 X10'6 (4.70-6.10); RED CELL DISTRIBUTION WIDTH 13.7 % (11.5-14.5); WHITE BLOOD COUNT 12.8 X10'3 (4.5-11.0)
[2020-04-15 03:31] LABS: ALANINE AMINOTRANSFERASE 56 U/L (12-78); ALBUMIN/GLOBULIN RATIO 0.5 (1.1-1.5); ALKALINE PHOSPHATASE 75 IU/L (46-116); ANION GAP 8 (8-16); ASPARTATE AMINO TRANSFERASE 45 U/L (10-37); BILIRUBIN,TOTAL 0.5 MG/DL (0.1-1.0); BLOOD UREA NITROGEN 59 MG/DL (7-18); C-REACTIVE PROTEIN 2.69 MG/DL (0.0-0.5); CALCIUM 7.9 MG/DL (8.5-10.1); CHLORIDE 104 MMOL/L (99-107); CREATININE 1.64 MG/DL (0.60-1.10); GLUCOSE 91 MG/DL (70-104); MAGNESIUM 2.7 MG/DL (1.5-2.4); POTASSIUM 3.9 MMOL/L (3.5-5.1); SODIUM 138 MMOL/L (135-145); TOTAL CARBON DIOXIDE 26.1 MMOL/L (24-32); eGFR 41 ML/MIN
[2020-04-15] MEDS: K and/or MAG REPLACEMENT MC SCH ×2 (08:00→19:20)
[2020-04-15] MEDS: cefepime 1GM/NS ADD-VANTAGE 100 ML IV SCH ×2 (08:15→20:14)
[2020-04-15] MEDS: methylPREDNISolone sod succ 125mg/2ml vial IV SCH ×2 (08:16→20:14)
[2020-04-15] MEDS: tamsulosin 0.4mg capsule PO SCH (08:17)
[2020-04-15] MEDS: linezolid 600mg tablet PO SCH ×2 (08:17→20:15)
[2020-04-15] MEDS: lactobacillus rhamnosus 10,000 MMU CELLS/CAPSULE PO SCH ×2 (08:17→20:14)
[2020-04-15] MEDS: apixaban 5mg tablet PO SCH ×2 (08:17→20:14)
[2020-04-15] MEDS: pantoprazole 40mg Tablet.DR PO SCH (08:17)
[2020-04-15] MEDS: lisinopril 10 MG tablet PO SCH (08:17)
[2020-04-15] MEDS: gabapentin 300mg capsule PO SCH ×2 (08:17→20:14)
[2020-04-15] MEDS: atorvastatin 20mg tablet PO SCH (08:18)
[2020-04-15] MEDS: propranolol 10mg tablet PO SCH ×2 (08:18→20:32)
[2020-04-15] MEDS: insulin Lispro (HumaLOG) vial - multi-dose SQ SCH ×3 (09:58→21:01)
--- NOTE | 2020-04-15 11:23 | NUR ---
F/u: Several unsuccessful attempts at placing Corpak and pt refusing further attempts per RN notes. Additional nutrition intervention options d/w RN. Pt to receive Ensure Enlive TID for optimal kcal and protein while PO intake of meals is low. Also to trial a smoothie q lunch and a shake q dinner. D/w dietary to send chop all food. If PO intake of meals improves consider ONS change to Glucerna. Will continue to follow closely. Recommendations: 1) Consider diet liberalization to regular given poor PO intake 2) Ensure Enlive TID; consider ONS change to Glucerna if PO intake of meals improve 3) Trial strawberry smoothie q lunch, vanilla shake q dinner, chop all food 4) Routine bowel care 5) Scaled weights per rx Addendum: 04/15/20 at [address] Amended: Links added.
--- NOTE | 2020-04-15 12:05 | NUR ---
04/14/20 stated she has a pending covid result and she came into the hospital and brought patient belongings and was instructed by myself to go home and isolate until results were final. 04/15/20 reported to patient that she is indeed positive. Per Dr. Rojas's request, I contacted , Reema. Dr. Rojas asked that a staff member contact Reema and encourage her to stay home for 14 days from the day of her positive results. She became irate. After several minutes of conversation she began to understand the risk of exposure she caused to the hospital and agreed to follow up with primary physician and to isolate at home.
[2020-04-15] MEDS ORDERED: protein smoothie 8oz. (237ml) PO SCH (13:00)
[2020-04-15] MEDS ORDERED: protein shake 8oz. (237ml) PO SCH (13:00)
[2020-04-15] MEDS: lactose-reduced food (Ensure Enlive) - 237ml bottle PO SCH ×3 (13:16→20:02)
--- NOTE | 2020-04-15 18:17 | NUR ---
Problems reprioritized. Patient report given, questions answered & plan of care reviewed with Mac RN.
[2020-04-15] MEDS: insulin glargine (Lantus) pen - multi-dose SQ SCH (21:02)
[2020-04-16] VITALS (23 sets, daily range): BP systolic 112–186; BP diastolic 65–93
[2020-04-16 03:03] LABS: BASOPHILS % (AUTO) 0.1 % (0-1); EOSINOPHILS % (AUTO) 0 % (0-6); HEMATOCRIT 44.5 % (42.0-52.0); LYMPHOCYTES # (AUTO) 0.8 X10'3 (1.1-4.8); LYMPHOCYTES % (AUTO) 4.2 % (21-51); MEAN CORPUSCULAR HGB CONC 33.8 g/dL (33.0-36.5); MEAN CORPUSCULAR VOLUME 91.6 FL (78-98); MEAN PLATELET VOLUME 9.2 FL (7.4-10.4); MONOCYTES # (AUTO) 0.7 X10'3 (0-0.9); MONOCYTES % (AUTO) 4.2 % (2-12); NEUTROPHILS # (AUTO) 16.2 X10'3 (1.8-7.7); NEUTROPHILS % (AUTO) 91.5 % (42-75); PLATELET COUNT 329 X10'3 (140-440); RED BLOOD COUNT 4.86 X10'6 (4.70-6.10); RED CELL DISTRIBUTION WIDTH 13.5 % (11.5-14.5); WHITE BLOOD COUNT 17.7 X10'3 (4.5-11.0)
[2020-04-16 03:20] LABS: ALANINE AMINOTRANSFERASE 97 U/L (12-78); ALBUMIN 2.1 G/DL (3.4-5.0); ALBUMIN/GLOBULIN RATIO 0.5 (1.1-1.5); ALKALINE PHOSPHATASE 84 IU/L (46-116); ANION GAP 7 (8-16); ASPARTATE AMINO TRANSFERASE 65 U/L (10-37); BILIRUBIN,TOTAL 0.7 MG/DL (0.1-1.0); BLOOD UREA NITROGEN 52 MG/DL (7-18); BUN/CREATININE RATIO 39.1 (5.4-32.0); C-REACTIVE PROTEIN 2.16 MG/DL (0.0-0.5); CALCIUM 8.4 MG/DL (8.5-10.1); CHLORIDE 108 MMOL/L (99-107); CREATININE 1.33 MG/DL (0.60-1.10); LACTATE DEHYDROGENASE 440 U/L (85-227); MAGNESIUM 2.9 MG/DL (1.5-2.4); POTASSIUM 4.2 MMOL/L (3.5-5.1); SODIUM 140 MMOL/L (135-145); TOTAL CARBON DIOXIDE 25.4 MMOL/L (24-32); TOTAL PROTEIN 6.3 G/DL (6.4-8.2); eGFR 52 ML/MIN
[2020-04-16 03:41] LABS: GLUCOSE 49 MG/DL (70-104)
--- NOTE | 2020-04-16 04:00 | NUR ---
RN Note -Pt has had increased somnolence, bradycardia and occasional ectopy. Pt remains oriented x4 and was able to assist with turning for bath, but falls asleep almost immediately when not actively engaged. Notified Tigre Torres, received order for ABG, which was similar to previous ABG. Pt had hypoglycemic episode, which was treated and rechecked.
[2020-04-16 04:26] LABS: ABG BASE EXCESS 0.1 mmol/L (-2.0-2.0); ABG HCO3 23.4 mmol/L (22.0-26.0); ABG OXYGEN SATURATION 89.8 % (94-97); ABG PO2 (T) 55.4 mmHg (75.0-100.0); ALLEN'S TEST POSITIVE; FCOHb 0.1 % (0.0-3.9); FLOW 70 L/min; FMetHb 0.1 % (0.0-1.5); FO2Hb 89.6 % (94-97); PATIENT TEMPERATURE 36.1; TOTAL HEMOGLOBIN 15.3 G/dl (14.0-18.0)
--- NOTE | 2020-04-16 07:12 | NUR ---
Patient in room CICU 2006. I have received report from ROBBI Lester and had the opportunity to ask questions and assume patient care.
[2020-04-16] MEDS: cefepime 1GM/NS ADD-VANTAGE 100 ML IV SCH ×2 (07:55→19:44)
[2020-04-16] MEDS: methylPREDNISolone sod succ 125mg/2ml vial IV SCH ×2 (07:55→19:45)
[2020-04-16] MEDS: atorvastatin 20mg tablet PO SCH (07:56)
[2020-04-16] MEDS: lactobacillus rhamnosus 10,000 MMU CELLS/CAPSULE PO SCH ×2 (07:56→19:45)
[2020-04-16] MEDS: tamsulosin 0.4mg capsule PO SCH (07:56)
[2020-04-16] MEDS: lisinopril 10 MG tablet PO SCH (07:56)
[2020-04-16] MEDS: gabapentin 300mg capsule PO SCH ×2 (07:56→19:45)
[2020-04-16] MEDS: apixaban 5mg tablet PO SCH ×2 (07:57→19:46)
[2020-04-16] MEDS: pantoprazole 40mg Tablet.DR PO SCH (07:57)
[2020-04-16] MEDS: propranolol 10mg tablet PO SCH ×2 (08:00→19:46)
[2020-04-16] MEDS: linezolid 600mg tablet PO SCH ×2 (08:09→19:45)
[2020-04-16] MEDS: lactose-reduced food (Ensure Enlive) - 237ml bottle PO SCH ×3 (08:35→18:00)
[2020-04-16] MEDS: K and/or MAG REPLACEMENT MC SCH ×2 (08:35→20:00)
[2020-04-16] MEDS ORDERED: morphine 2 MG/ML inj. syringe IV PRN (11:45)
[2020-04-16] MEDS ORDERED: morphine 4 MG/ML inj SYRINge IV PRN (11:45)
[2020-04-16] MEDS ORDERED: morphine 4 MG/ML inj SYRINge ONE (11:47)
--- NOTE | 2020-04-16 13:23 | NUR ---
Attempted to prone pt. Pt refused and wanted to sit upright on highflow and non-rebreather. Saturating at 94%
--- NOTE | 2020-04-16 18:10 | NUR ---
Problems reprioritized. Patient report given, questions answered & plan of care reviewed with ROBBI Gramajo.
[2020-04-16] MEDS: insulin glargine (Lantus) pen - multi-dose SQ SCH (21:11)
[2020-04-17] VITALS (23 sets, daily range): BP systolic 122–166; BP diastolic 65–97
[2020-04-17 02:02] LABS: BASOPHILS % (AUTO) 0 % (0-1); EOSINOPHILS % (AUTO) 0 % (0-6); HEMATOCRIT 43.7 % (42.0-52.0); HEMOGLOBIN 14.8 g/dl (14.0-17.9); LYMPHOCYTES # (AUTO) 0.4 X10'3 (1.1-4.8); LYMPHOCYTES % (AUTO) 3.6 % (21-51); MEAN CORPUSCULAR HEMOGLOBIN 31.6 PG (27.0-31.0); MEAN CORPUSCULAR HGB CONC 33.9 g/dL (33.0-36.5); MEAN CORPUSCULAR VOLUME 93.3 FL (78-98); MEAN PLATELET VOLUME 9.4 FL (7.4-10.4); MONOCYTES # (AUTO) 0.5 X10'3 (0-0.9); MONOCYTES % (AUTO) 4.1 % (2-12); NEUTROPHILS # (AUTO) 11.2 X10'3 (1.8-7.7); NEUTROPHILS % (AUTO) 92.3 % (42-75); PLATELET COUNT 240 X10'3 (140-440); RED BLOOD COUNT 4.68 X10'6 (4.70-6.10); RED CELL DISTRIBUTION WIDTH 13.6 % (11.5-14.5); WHITE BLOOD COUNT 12.1 X10'3 (4.5-11.0)
[2020-04-17 02:04] LABS: ANION GAP 5 (8-16); BLOOD UREA NITROGEN 53 MG/DL (7-18); BUN/CREATININE RATIO 34.2 (5.4-32.0); CALCIUM 7.9 MG/DL (8.5-10.1); CHLORIDE 101 MMOL/L (99-107); CREATININE 1.55 MG/DL (0.60-1.10); GLUCOSE 370 MG/DL (70-104); MAGNESIUM 2.6 MG/DL (1.5-2.4); POTASSIUM 5.8 MMOL/L (3.5-5.1); SODIUM 131 MMOL/L (135-145); TOTAL CARBON DIOXIDE 24.7 MMOL/L (24-32); eGFR 43 ML/MIN
[2020-04-17] MEDS: normal saline 1000ml 1,000 ML IV SCH (07:51)
[2020-04-17] MEDS: cefepime 1GM/NS ADD-VANTAGE 100 ML IV SCH ×2 (07:51→19:29)
[2020-04-17] MEDS: lactose-reduced food (Ensure Enlive) - 237ml bottle PO SCH ×3 (08:00→18:00)
[2020-04-17] MEDS: K and/or MAG REPLACEMENT MC SCH ×2 (08:00→20:00)
[2020-04-17] MEDS: linezolid 600mg tablet PO SCH ×2 (08:01→19:30)
[2020-04-17] MEDS: methylPREDNISolone sod succ 125mg/2ml vial IV SCH ×2 (08:01→19:29)
[2020-04-17] MEDS: apixaban 5mg tablet PO SCH ×2 (08:02→19:30)
[2020-04-17] MEDS: lactobacillus rhamnosus 10,000 MMU CELLS/CAPSULE PO SCH ×2 (08:02→19:29)
[2020-04-17] MEDS: gabapentin 300mg capsule PO SCH ×2 (08:02→19:29)
[2020-04-17] MEDS: tamsulosin 0.4mg capsule PO SCH (08:02)
[2020-04-17] MEDS: propranolol 10mg tablet PO SCH ×2 (08:02→19:29)
[2020-04-17] MEDS: lisinopril 10 MG tablet PO SCH (08:02)
[2020-04-17] MEDS: pantoprazole 40mg Tablet.DR PO SCH (08:03)
[2020-04-17] MEDS: atorvastatin 20mg tablet PO SCH (08:03)
[2020-04-17] MEDS: insulin Lispro (HumaLOG) vial - multi-dose SQ SCH ×2 (08:57→13:05)
--- NOTE | 2020-04-17 19:08 | NUR ---
pt linens changed and bed bath performed. Pt states he is very tired. will monitor
--- NOTE | 2020-04-17 20:55 | NUR ---
pt's blood glucose 146 Lantus held as pt is refusing all meals.
[2020-04-17] MEDS: insulin glargine (Lantus) pen - multi-dose SQ SCH (21:00)
[2020-04-18] VITALS (24 sets, daily range): BP systolic 110–153; BP diastolic 54–92
[2020-04-18 02:58] LABS: BASOPHILS % (AUTO) 0 % (0-1); EOSINOPHILS % (AUTO) 0 % (0-6); HEMATOCRIT 44.8 % (42.0-52.0); HEMOGLOBIN 14.7 g/dl (14.0-17.9); LYMPHOCYTES # (AUTO) 0.8 X10'3 (1.1-4.8); LYMPHOCYTES % (AUTO) 5.7 % (21-51); MEAN CORPUSCULAR HEMOGLOBIN 30.7 PG (27.0-31.0); MEAN CORPUSCULAR HGB CONC 32.9 g/dL (33.0-36.5); MEAN CORPUSCULAR VOLUME 93.3 FL (78-98); MEAN PLATELET VOLUME 9.6 FL (7.4-10.4); MONOCYTES # (AUTO) 0.6 X10'3 (0-0.9); MONOCYTES % (AUTO) 3.8 % (2-12); NEUTROPHILS # (AUTO) 13.1 X10'3 (1.8-7.7); NEUTROPHILS % (AUTO) 90.5 % (42-75); PLATELET COUNT 298 X10'3 (140-440); RED CELL DISTRIBUTION WIDTH 13.7 % (11.5-14.5); WHITE BLOOD COUNT 14.5 X10'3 (4.5-11.0)
[2020-04-18 03:16] LABS: ANION GAP 8 (8-16); BLOOD UREA NITROGEN 55 MG/DL (7-18); BUN/CREATININE RATIO 36.9 (5.4-32.0); C-REACTIVE PROTEIN 2.54 MG/DL (0.0-0.5); CHLORIDE 104 MMOL/L (99-107); CREATININE 1.49 MG/DL (0.60-1.10); GLUCOSE 110 MG/DL (70-104); LACTATE DEHYDROGENASE 506 U/L (85-227); MAGNESIUM 2.8 MG/DL (1.5-2.4); POTASSIUM 5.4 MMOL/L (3.5-5.1); SODIUM 138 MMOL/L (135-145); eGFR 45 ML/MIN
--- NOTE | 2020-04-18 04:46 | NUR ---
pt drank one ensure tonight
--- NOTE | 2020-04-18 06:34 | NUR ---
Patient in room CICU 2006. I have received report from ROBBI Anders and had the opportunity to ask questions and assume patient care.
[2020-04-18] MEDS: K and/or MAG REPLACEMENT MC SCH ×2 (08:00→20:00)
[2020-04-18] MEDS: lisinopril 10 MG tablet PO SCH (08:26)
[2020-04-18] MEDS: lactobacillus rhamnosus 10,000 MMU CELLS/CAPSULE PO SCH ×2 (08:26→21:11)
[2020-04-18] MEDS: methylPREDNISolone sod succ 125mg/2ml vial IV SCH (08:26)
[2020-04-18] MEDS: apixaban 5mg tablet PO SCH ×2 (08:26→21:12)
[2020-04-18] MEDS: cefepime 1GM/NS ADD-VANTAGE 100 ML IV SCH ×2 (08:26→21:11)
[2020-04-18] MEDS: gabapentin 300mg capsule PO SCH ×2 (08:26→21:11)
[2020-04-18] MEDS: atorvastatin 20mg tablet PO SCH (08:27)
[2020-04-18] MEDS: lactose-reduced food (Ensure Enlive) - 237ml bottle PO SCH ×3 (08:27→18:00)
[2020-04-18] MEDS: pantoprazole 40mg Tablet.DR PO SCH (08:27)
[2020-04-18] MEDS: linezolid 600mg tablet PO SCH ×2 (08:27→21:12)
[2020-04-18] MEDS: propranolol 10mg tablet PO SCH ×2 (08:27→21:12)
[2020-04-18] MEDS: tamsulosin 0.4mg capsule PO SCH (08:27)
[2020-04-18] MEDS: insulin Lispro (HumaLOG) vial - multi-dose SQ SCH ×2 (08:54→13:27)
[2020-04-18 12:25] LABS: ABG HCO3 21.7 mmol/L (22.0-26.0); ABG PCO2 (T) 34.3 mmHg (35.0-48.0); ABG PO2 (T) 61.7 mmHg (75.0-100.0); ALLEN'S TEST POSITIVE; FCOHb 0.1 % (0.0-3.9); FLOW 55 L/min; FMetHb 0.3 % (0.0-1.5); FO2Hb 90.6 % (94-97); PATIENT TEMPERATURE 36.8; TOTAL HEMOGLOBIN 15.6 G/dl (14.0-18.0)
[2020-04-18] MEDS: dronabinol 2.5mg capsule PO SCH ×2 (12:32→21:47)
--- NOTE | 2020-04-18 12:51 | NUR ---
Reassessment 04/18: pt did successfully consume 100% of three ensure enlive drinks and 50% of one ensure this morning, however has refused for past three meals. Very poor PO intake r/t shortness of breath and difficulty breathing, ate 50% of protein at lunch. Observed pt at critical care rounds able to tolerate drinking water from a straw, per bedside RN pt drinks at least a liter per day. Spoke with pt via telephone and encouraged PO intake and encouraged to drink oral nutrition supplement, suggested to RN to pour ensure into containers used for water and for patient to drink with a straw to improve intake. Last BM 04/13, not receiving bowel care. May benefit from bowel care in view of receiving pain medications. Recommendations: 1) Consider diet liberalization to regular given poor PO intake 2) Ensure Enlive TID 3) Trial strawberry smoothie q lunch, vanilla shake q dinner, chop all food 4) Routine bowel care 5) Scaled weights per rx Addendum: 04/18/20 at [address] Amended: Links added.
--- NOTE | 2020-04-18 18:20 | NUR ---
Patient in room CICU 2006. I have received report from Aby CULP and had the opportunity to ask questions and assume patient care.
[2020-04-18] MEDS: methylPREDNISolone sod succ/PF 40mg inj. IV SCH (21:11)
[2020-04-18] MEDS: furosemide 40mg/4ml inj IV SCH (21:11)
[2020-04-18] MEDS: insulin glargine (Lantus) pen - multi-dose SQ SCH (21:48)
[2020-04-19] VITALS (24 sets, daily range): BP systolic 116–165; BP diastolic 59–84
[2020-04-19] MEDS: normal saline 1000ml 1,000 ML IV SCH (02:22)
--- NOTE | 2020-04-19 06:45 | NUR ---
Patient in room CICU 2006. I have received report from Tayler CULP and had the opportunity to ask questions and assume patient care.
--- NOTE | 2020-04-19 07:00 | NUR ---
Problems reprioritized. Patient report given, questions answered & plan of care reviewed with SUNIL CULP.
[2020-04-19 07:26] LABS: BASOPHILS % (AUTO) 0.1 % (0-1); EOSINOPHILS % (AUTO) 0.1 % (0-6); HEMATOCRIT 46.8 % (42.0-52.0); HEMOGLOBIN 15.7 g/dl (14.0-17.9); LYMPHOCYTES % (AUTO) 6.9 % (21-51); MEAN CORPUSCULAR HEMOGLOBIN 31.3 PG (27.0-31.0); MEAN CORPUSCULAR HGB CONC 33.5 g/dL (33.0-36.5); MEAN CORPUSCULAR VOLUME 93.5 FL (78-98); MEAN PLATELET VOLUME 9.2 FL (7.4-10.4); MONOCYTES # (AUTO) 0.4 X10'3 (0-0.9); MONOCYTES % (AUTO) 2.7 % (2-12); NEUTROPHILS # (AUTO) 13.1 X10'3 (1.8-7.7); NEUTROPHILS % (AUTO) 90.2 % (42-75); PLATELET COUNT 244 X10'3 (140-440); RED BLOOD COUNT 5.01 X10'6 (4.70-6.10); RED CELL DISTRIBUTION WIDTH 13.5 % (11.5-14.5); WHITE BLOOD COUNT 14.6 X10'3 (4.5-11.0)
[2020-04-19] MEDS: K and/or MAG REPLACEMENT MC SCH ×2 (08:00→20:00)
[2020-04-19] MEDS: insulin Lispro (HumaLOG) vial - multi-dose SQ SCH ×3 (08:08→19:43)
[2020-04-19 08:26] LABS: ANION GAP 9 (8-16); BLOOD UREA NITROGEN 58 MG/DL (7-18); BUN/CREATININE RATIO 36.5 (5.4-32.0); CALCIUM 8.4 MG/DL (8.5-10.1); CHLORIDE 104 MMOL/L (99-107); CREATININE 1.59 MG/DL (0.60-1.10); GLUCOSE 131 MG/DL (70-104); POTASSIUM 5.5 MMOL/L (3.5-5.1); SODIUM 136 MMOL/L (135-145); TOTAL CARBON DIOXIDE 23.1 MMOL/L (24-32); eGFR 42 ML/MIN
[2020-04-19] MEDS: linezolid 600mg tablet PO SCH ×2 (08:35→20:01)
[2020-04-19] MEDS: furosemide 40mg/4ml inj IV SCH ×2 (08:35→20:00)
[2020-04-19] MEDS: pantoprazole 40mg Tablet.DR PO SCH (08:35)
[2020-04-19] MEDS: propranolol 10mg tablet PO SCH ×2 (08:35→20:01)
[2020-04-19] MEDS: lactobacillus rhamnosus 10,000 MMU CELLS/CAPSULE PO SCH ×2 (08:35→20:01)
[2020-04-19] MEDS: tamsulosin 0.4mg capsule PO SCH (08:35)
[2020-04-19] MEDS: methylPREDNISolone sod succ/PF 40mg inj. IV SCH ×2 (08:35→20:01)
[2020-04-19] MEDS: gabapentin 300mg capsule PO SCH ×2 (08:35→20:02)
[2020-04-19] MEDS: cefepime 1GM/NS ADD-VANTAGE 100 ML IV SCH ×2 (08:35→20:15)
[2020-04-19] MEDS: apixaban 5mg tablet PO SCH ×2 (08:36→20:01)
[2020-04-19] MEDS: atorvastatin 20mg tablet PO SCH (08:36)
[2020-04-19] MEDS: lisinopril 10 MG tablet PO SCH (08:36)
[2020-04-19] MEDS: dronabinol 2.5mg capsule PO SCH ×3 (08:37→17:21)
[2020-04-19] MEDS: lactose-reduced food (Ensure Enlive) - 237ml bottle PO SCH ×3 (08:39→17:22)
--- NOTE | 2020-04-19 15:59 | NUR ---
F/u: Pt with 100% PO intake of ONS at both meals today and documented with 100% PO intake of protein at both lunch and dinner. Pt now receiving routine Marinol. Still no BM since 04/13, with PRN bowel care available however not documented to be provided. D/w RN. Routine bowel care now added to med list. Will continue to follow closely. Recommendations: 1) Consider diet liberalization to regular given poor PO intake 2) Ensure Enlive TID 3) Trial strawberry smoothie q lunch, vanilla shake q dinner, chop all food 4) Appetite stimulant per MD 5) Routine bowel care 6) Scaled weights per rx Addendum: 04/19/20 at [address] Amended: Links added.
--- NOTE | 2020-04-19 18:08 | NUR ---
Problems reprioritized. Patient report given, questions answered & plan of care reviewed with Mathieu CULP.
--- NOTE | 2020-04-19 18:10 | NUR ---
Patient in room CICU 2006. I have received report from Becky CULP and had the opportunity to ask questions and assume patient care.
[2020-04-19] MEDS: polyethylene glycol 3350 17gm powd pack PO SCH (21:28)
[2020-04-19] MEDS: sennosides 8.6mg tablet PO SCH (21:28)
[2020-04-19] MEDS: insulin glargine (Lantus) pen - multi-dose SQ SCH (21:53)
[2020-04-20] VITALS (24 sets, daily range): BP systolic 115–165; BP diastolic 60–88
[2020-04-20 02:47] LABS: BASOPHILS % (AUTO) 0.1 % (0-1); EOSINOPHILS % (AUTO) 0.1 % (0-6); HEMATOCRIT 45.7 % (42.0-52.0); HEMOGLOBIN 15.4 g/dl (14.0-17.9); LYMPHOCYTES # (AUTO) 0.8 X10'3 (1.1-4.8); LYMPHOCYTES % (AUTO) 5.5 % (21-51); MEAN CORPUSCULAR HEMOGLOBIN 31.1 PG (27.0-31.0); MEAN CORPUSCULAR HGB CONC 33.6 g/dL (33.0-36.5); MEAN CORPUSCULAR VOLUME 92.5 FL (78-98); MEAN PLATELET VOLUME 9.4 FL (7.4-10.4); MONOCYTES # (AUTO) 0.6 X10'3 (0-0.9); MONOCYTES % (AUTO) 4.2 % (2-12); NEUTROPHILS # (AUTO) 12.5 X10'3 (1.8-7.7); NEUTROPHILS % (AUTO) 90.1 % (42-75); PLATELET COUNT 268 X10'3 (140-440); RED BLOOD COUNT 4.94 X10'6 (4.70-6.10); RED CELL DISTRIBUTION WIDTH 13.7 % (11.5-14.5); WHITE BLOOD COUNT 13.9 X10'3 (4.5-11.0)
[2020-04-20 02:49] LABS: ALBUMIN 1.9 G/DL (3.4-5.0); ANION GAP 7 (8-16); BLOOD UREA NITROGEN 59 MG/DL (7-18); C-REACTIVE PROTEIN 2.61 MG/DL (0.0-0.5); CALCIUM 8.2 MG/DL (8.5-10.1); CHLORIDE 105 MMOL/L (99-107); CREATININE 1.64 MG/DL (0.60-1.10); GLUCOSE 80 MG/DL (70-104); LACTATE DEHYDROGENASE 506 U/L (85-227); MAGNESIUM 2.3 MG/DL (1.5-2.4); SODIUM 140 MMOL/L (135-145); eGFR 41 ML/MIN
[2020-04-20 02:58] LABS: D-DIMER 3.65 MG/L FEU (0-0.50)
--- NOTE | 2020-04-20 06:11 | NUR ---
Problems reprioritized. Patient report given, questions answered & plan of care reviewed with Becky CULP.
--- NOTE | 2020-04-20 06:25 | NUR ---
Patient in room CICU 2006. I have received report from Mathieu CULP and had the opportunity to ask questions and assume patient care.
[2020-04-20] MEDS: methylPREDNISolone sod succ/PF 40mg inj. IV SCH ×2 (07:42→19:26)
[2020-04-20] MEDS: furosemide 40mg/4ml inj IV SCH ×2 (07:42→19:26)
[2020-04-20] MEDS: cefepime 1GM/NS ADD-VANTAGE 100 ML IV SCH (07:43)
[2020-04-20] MEDS: dronabinol 2.5mg capsule PO SCH ×3 (07:43→17:48)
[2020-04-20] MEDS: apixaban 5mg tablet PO SCH ×2 (07:45→19:26)
[2020-04-20] MEDS: atorvastatin 20mg tablet PO SCH (07:45)
[2020-04-20] MEDS: lactobacillus rhamnosus 10,000 MMU CELLS/CAPSULE PO SCH ×2 (07:45→19:26)
[2020-04-20] MEDS: propranolol 10mg tablet PO SCH ×2 (07:45→19:26)
[2020-04-20] MEDS: gabapentin 300mg capsule PO SCH ×2 (07:45→19:26)
[2020-04-20] MEDS: tamsulosin 0.4mg capsule PO SCH (07:46)
[2020-04-20] MEDS: docusate sod 250mg capsule PO SCH (07:46)
[2020-04-20] MEDS: pantoprazole 40mg Tablet.DR PO SCH (07:46)
[2020-04-20] MEDS: linezolid 600mg tablet PO SCH (07:46)
[2020-04-20] MEDS: lactose-reduced food (Ensure Enlive) - 237ml bottle PO SCH ×3 (07:47→18:00)
[2020-04-20] MEDS: K and/or MAG REPLACEMENT MC SCH ×2 (08:00→19:49)
--- NOTE | 2020-04-20 08:34 | NUR ---
No requirements for insulin at this time per protocol, patient's blood glucose is 119 at a Level 6 and he declined to have breakfast or his ensure. Will continue to monitor.
[2020-04-20] MEDS: insulin Lispro (HumaLOG) vial - multi-dose SQ SCH ×3 (12:36→21:27)
[2020-04-20] MEDS: normal saline 1000ml 1,000 ML IV SCH (17:48)
--- NOTE | 2020-04-20 18:21 | NUR ---
Problems reprioritized. Patient report given, questions answered & plan of care reviewed with Vonda CULP.
[2020-04-20] MEDS: polyethylene glycol 3350 17gm powd pack PO SCH (20:23)
[2020-04-20] MEDS: sennosides 8.6mg tablet PO SCH (20:23)
[2020-04-20] MEDS: insulin glargine (Lantus) pen - multi-dose SQ SCH (21:26)
[2020-04-21] VITALS (24 sets, daily range): BP systolic 109–147; BP diastolic 53–76
[2020-04-21 05:51] LABS: BASOPHILS % (AUTO) 0.1 % (0-1); EOSINOPHILS % (AUTO) 0.1 % (0-6); HEMATOCRIT 46.9 % (42.0-52.0); HEMOGLOBIN 15.6 g/dl (14.0-17.9); LYMPHOCYTES # (AUTO) 0.9 X10'3 (1.1-4.8); LYMPHOCYTES % (AUTO) 7.5 % (21-51); MEAN CORPUSCULAR HEMOGLOBIN 30.8 PG (27.0-31.0); MEAN CORPUSCULAR HGB CONC 33.2 g/dL (33.0-36.5); MEAN CORPUSCULAR VOLUME 92.8 FL (78-98); MEAN PLATELET VOLUME 9.6 FL (7.4-10.4); MONOCYTES # (AUTO) 0.6 X10'3 (0-0.9); MONOCYTES % (AUTO) 4.7 % (2-12); NEUTROPHILS # (AUTO) 10.6 X10'3 (1.8-7.7); NEUTROPHILS % (AUTO) 87.6 % (42-75); PLATELET COUNT 249 X10'3 (140-440); RED BLOOD COUNT 5.06 X10'6 (4.70-6.10); RED CELL DISTRIBUTION WIDTH 13.8 % (11.5-14.5); WHITE BLOOD COUNT 12.1 X10'3 (4.5-11.0)
[2020-04-21 06:08] LABS: ANION GAP 7 (8-16); BLOOD UREA NITROGEN 74 MG/DL (7-18); BUN/CREATININE RATIO 39.8 (5.4-32.0); CALCIUM 8.2 MG/DL (8.5-10.1); CHLORIDE 99 MMOL/L (99-107); CREATININE 1.86 MG/DL (0.60-1.10); GLUCOSE 223 MG/DL (70-104); MAGNESIUM 2.4 MG/DL (1.5-2.4); POTASSIUM 4.9 MMOL/L (3.5-5.1); SODIUM 135 MMOL/L (135-145); TOTAL CARBON DIOXIDE 28.8 MMOL/L (24-32); eGFR 35 ML/MIN
--- NOTE | 2020-04-21 06:14 | NUR ---
Problems reprioritized. Patient report given, questions answered & plan of care reviewed with ROBBI Oliveira.
--- NOTE | 2020-04-21 06:20 | NUR ---
Patient in room CICU 2005. I have received report from ROBBI Barrett and had the opportunity to ask questions and assume patient care. Patient asleep in bed and in no acute distress.
[2020-04-21] MEDS: gabapentin 300mg capsule PO SCH ×2 (07:45→20:51)
[2020-04-21] MEDS: lactobacillus rhamnosus 10,000 MMU CELLS/CAPSULE PO SCH ×2 (07:45→20:50)
[2020-04-21] MEDS: pantoprazole 40mg Tablet.DR PO SCH (07:45)
[2020-04-21] MEDS: apixaban 5mg tablet PO SCH ×2 (07:46→20:51)
[2020-04-21] MEDS: docusate sod 250mg capsule PO SCH (07:46)
[2020-04-21] MEDS: propranolol 10mg tablet PO SCH ×2 (07:47→20:51)
[2020-04-21] MEDS: tamsulosin 0.4mg capsule PO SCH (07:47)
[2020-04-21] MEDS: dronabinol 2.5mg capsule PO SCH ×3 (07:48→17:00)
[2020-04-21] MEDS: atorvastatin 20mg tablet PO SCH (07:48)
[2020-04-21] MEDS: methylPREDNISolone sod succ/PF 40mg inj. IV SCH ×2 (07:50→20:50)
[2020-04-21] MEDS: K and/or MAG REPLACEMENT MC SCH ×2 (07:56→20:00)
[2020-04-21] MEDS: lactose-reduced food (Ensure Enlive) - 237ml bottle PO SCH ×3 (08:00→18:00)
[2020-04-21] MEDS: insulin Lispro (HumaLOG) vial - multi-dose SQ SCH ×2 (08:34→13:30)
[2020-04-21] MEDS: furosemide 40mg/4ml inj IV SCH (08:40)
--- NOTE | 2020-04-21 08:40 | NUR ---
Administered lasix 40mg this morning. Frequency and schedule was changed from BID to daily during medication administration.
--- NOTE | 2020-04-21 12:10 | NUR ---
Patient refused 1100 marinol. Med was wasted in the medication destroyer and witnessed by ROBBI Adrian. Form filled out and in pharmacy outbox.
--- NOTE | 2020-04-21 14:48 | NUR ---
Proning offered to patient each time I enter the room, patient refuses. Patient will turn himself independently, but pillows are placed under hips to offload pressure. Physical therapy exercises gone over with patient and educated patient on exercises. Patient is lethargic and refusing meals but drinking half of Ensures.
--- NOTE | 2020-04-21 15:10 | NUR ---
Dr. Rojas aware that patient is refusing proning despite being educated about the benefits and speeding up his recovery. Also refusing nutrition and NG to keep up on nutrition.
--- NOTE | 2020-04-21 17:40 | NUR ---
Called to give her an update on patient's condition and mentioned prone positioning to her and she stated that he had L2 - L3 posterior decompression where it makes it uncomfortable for him to lay on his stomach.
--- NOTE | 2020-04-21 18:30 | NUR ---
Patient in room CICU 2006. I have received report from Roxanne CULP and had the opportunity to ask questions and assume patient care.
--- NOTE | 2020-04-21 18:30 | NUR ---
Problems reprioritized. Patient report given, questions answered & plan of care reviewed with ROBBI Aguilar. Patient stable at transfer of care.
--- NOTE | 2020-04-21 19:30 | NUR ---
Patient nighttime glucose was 188. Nighttime correctional Insulin was not given because patient refused to eat any food today. RN will continue to monitor sugar throughout the night. RN encouraged patient to eat and drink ensure and educated patient. Patient refused.
--- NOTE | 2020-04-21 20:00 | NUR ---
Patient refusing to drink ensures. He is still drinking an ensure from daytime. He takes one sip and says its enough. He states he likes drinking water. I encouraged patient on importance of protein and nutrients in the ensures. Patient is aware. Patient is also also Patient allows for minimal turns. He refuses full turns. I reposition with pillows and turns as allowed. I educated patient on importance of turns and proning, patient is aware of s.s
[2020-04-21] MEDS: polyethylene glycol 3350 17gm powd pack PO SCH (20:49)
[2020-04-21] MEDS: sennosides 8.6mg tablet PO SCH (20:50)
[2020-04-21] MEDS: insulin glargine (Lantus) pen - multi-dose SQ SCH (21:23)
[2020-04-22] VITALS (23 sets, daily range): BP systolic 117–149; BP diastolic 68–87
[2020-04-22 05:12] LABS: BASOPHILS % (AUTO) 0.2 % (0-1); EOSINOPHILS % (AUTO) 0.1 % (0-6); HEMATOCRIT 48.3 % (42.0-52.0); LYMPHOCYTES # (AUTO) 0.7 X10'3 (1.1-4.8); LYMPHOCYTES % (AUTO) 5.6 % (21-51); MEAN CORPUSCULAR HEMOGLOBIN 30.9 PG (27.0-31.0); MEAN CORPUSCULAR HGB CONC 33.1 g/dL (33.0-36.5); MEAN CORPUSCULAR VOLUME 93.6 FL (78-98); MEAN PLATELET VOLUME 9.2 FL (7.4-10.4); MONOCYTES # (AUTO) 0.5 X10'3 (0-0.9); MONOCYTES % (AUTO) 4.3 % (2-12); NEUTROPHILS # (AUTO) 10.6 X10'3 (1.8-7.7); NEUTROPHILS % (AUTO) 89.8 % (42-75); PLATELET COUNT 215 X10'3 (140-440); RED BLOOD COUNT 5.16 X10'6 (4.70-6.10); RED CELL DISTRIBUTION WIDTH 13.7 % (11.5-14.5); WHITE BLOOD COUNT 11.8 X10'3 (4.5-11.0)
[2020-04-22 05:31] LABS: ALANINE AMINOTRANSFERASE 227 U/L (12-78); ALBUMIN 1.9 G/DL (3.4-5.0); ALBUMIN/GLOBULIN RATIO 0.5 (1.1-1.5); ALKALINE PHOSPHATASE 163 IU/L (46-116); ANION GAP 5 (8-16); ASPARTATE AMINO TRANSFERASE 142 U/L (10-37); BILIRUBIN,TOTAL 0.9 MG/DL (0.1-1.0); BLOOD UREA NITROGEN 74 MG/DL (7-18); BUN/CREATININE RATIO 39.6 (5.4-32.0); CALCIUM 8.2 MG/DL (8.5-10.1); CHLORIDE 98 MMOL/L (99-107); CREATININE 1.87 MG/DL (0.60-1.10); GLUCOSE 342 MG/DL (70-104); MAGNESIUM 2.4 MG/DL (1.5-2.4); POTASSIUM 5.4 MMOL/L (3.5-5.1); SODIUM 133 MMOL/L (135-145); TOTAL CARBON DIOXIDE 30.2 MMOL/L (24-32); TOTAL PROTEIN 5.9 G/DL (6.4-8.2); eGFR 35 ML/MIN
--- NOTE | 2020-04-22 06:18 | NUR ---
Problems reprioritized. Patient report given, questions answered & plan of care reviewed with Kimberly CULP.
--- NOTE | 2020-04-22 06:20 | NUR ---
Patient in room CICU 2006. I have received report from ROBBI Wolfe and had the opportunity to ask questions and assume patient care.
[2020-04-22] MEDS: gabapentin 300mg capsule PO SCH ×2 (07:31→20:18)
[2020-04-22] MEDS: furosemide 40mg/4ml inj IV SCH (07:31)
[2020-04-22] MEDS: dronabinol 2.5mg capsule PO SCH ×3 (07:31→17:12)
[2020-04-22] MEDS: methylPREDNISolone sod succ/PF 40mg inj. IV SCH ×2 (07:31→20:18)
[2020-04-22] MEDS: docusate sod 250mg capsule PO SCH (07:32)
[2020-04-22] MEDS: tamsulosin 0.4mg capsule PO SCH (07:32)
[2020-04-22] MEDS: apixaban 5mg tablet PO SCH ×2 (07:32→20:18)
[2020-04-22] MEDS: lactobacillus rhamnosus 10,000 MMU CELLS/CAPSULE PO SCH ×2 (07:32→20:18)
[2020-04-22] MEDS: atorvastatin 20mg tablet PO SCH (07:32)
[2020-04-22] MEDS: propranolol 10mg tablet PO SCH ×2 (07:32→20:18)
[2020-04-22] MEDS: pantoprazole 40mg Tablet.DR PO SCH (07:32)
[2020-04-22] MEDS: K and/or MAG REPLACEMENT MC SCH ×2 (08:00→20:27)
[2020-04-22] MEDS: insulin Lispro (HumaLOG) vial - multi-dose SQ SCH ×3 (08:04→19:06)
[2020-04-22] MEDS: lactose-reduced food (Ensure Enlive) - 237ml bottle PO SCH ×3 (08:20→18:00)
[2020-04-22] MEDS: zinc sulfate 220mg capsule PO SCH (10:18)
--- NOTE | 2020-04-22 12:05 | NUR ---
During rounds, Dr. Rojas gave a verbal order for the patient's lantus to be switched to BID (AM/PM). He said to take the daily amount of insulin given during the day and half it, to give dosage of lantus. I.e. Patient received 38 units/2 which equals 19 units per dose.
--- NOTE | 2020-04-22 12:51 | NUR ---
Reassessment: Patient's PO intake has significantly declined, now refusing meals and only with 25-50% PO intake of ONS. Per RN notes pt is being encouraged to consume nutrition however reports he is done with the ONS following just a sip. Pt started on Zinc to assist with decrease in taste/smell and to begin antidepressant per MD at critical care rounds. Pt continues receiving routine Marinol although noted that pt documented to be refusing at times. LB 04/21. Will continue to follow closely. Recommendations: 1) Consider diet liberalization to regular given poor PO intake; encourage PO intake 2) Ensure Enlive TID 3) Trial strawberry smoothie q lunch, vanilla shake q dinner, chop all food 4) Appetite stimulant per MD 5) Routine bowel care 6) Scaled weights per rx Addendum: 04/22/20 at [address] Amended: Links added.
--- NOTE | 2020-04-22 13:00 | NUR ---
Discussed with patient on if he feels depressed about being in isolation from others, family, to which he gave a vague answer "sure I feel depressed about being away from others but I've never been depressed in my life." To which his on the phone reports that he has suffered from PTSD from [place] and 21 years in the [place]; but she reports that he was never reliant on medication when dealing with ptsd or depression. Also discussed code status with patient, to which he reports that he would like to remain a full code.
--- NOTE | 2020-04-22 18:18 | NUR ---
Problems reprioritized. Patient report given, questions answered & plan of care reviewed with ROBBI Rocha.
[2020-04-22] MEDS: sennosides 8.6mg tablet PO SCH (19:35)
[2020-04-22] MEDS: polyethylene glycol 3350 17gm powd pack PO SCH (19:35)
[2020-04-22] MEDS ORDERED: insulin glargine (Lantus) pen - multi-dose SQ SCH ×2 (20:00)
[2020-04-23] VITALS (24 sets, daily range): BP systolic 99–142; BP diastolic 44–71
[2020-04-23] MEDS: normal saline 1000ml 1,000 ML IV SCH (03:00)
[2020-04-23 05:56] LABS: ALANINE AMINOTRANSFERASE 206 U/L (12-78); ALBUMIN 1.9 G/DL (3.4-5.0); ALBUMIN/GLOBULIN RATIO 0.5 (1.1-1.5); ALKALINE PHOSPHATASE 160 IU/L (46-116); ANION GAP 4 (8-16); ASPARTATE AMINO TRANSFERASE 84 U/L (10-37); BILIRUBIN,TOTAL 0.7 MG/DL (0.1-1.0); BLOOD UREA NITROGEN 68 MG/DL (7-18); BUN/CREATININE RATIO 44.7 (5.4-32.0); CALCIUM 8.1 MG/DL (8.5-10.1); CHLORIDE 100 MMOL/L (99-107); CREATININE 1.52 MG/DL (0.60-1.10); GLUCOSE 233 MG/DL (70-104); SODIUM 135 MMOL/L (135-145); TOTAL CARBON DIOXIDE 30.9 MMOL/L (24-32); TOTAL PROTEIN 5.8 G/DL (6.4-8.2); eGFR 44 ML/MIN
--- NOTE | 2020-04-23 06:05 | NUR ---
Patient in room CICU 2006. I have received report from Aj CULP and had the opportunity to ask questions and assume patient care.
[2020-04-23 06:10] LABS: BASOPHILS % (AUTO) 0 % (0-1); EOSINOPHILS % (AUTO) 0.2 % (0-6); HEMATOCRIT 46.2 % (42.0-52.0); HEMOGLOBIN 15.5 g/dl (14.0-17.9); LYMPHOCYTES # (AUTO) 0.8 X10'3 (1.1-4.8); MEAN CORPUSCULAR HGB CONC 33.6 g/dL (33.0-36.5); MEAN CORPUSCULAR VOLUME 92.2 FL (78-98); MEAN PLATELET VOLUME 9.6 FL (7.4-10.4); MONOCYTES # (AUTO) 0.7 X10'3 (0-0.9); MONOCYTES % (AUTO) 5.6 % (2-12); NEUTROPHILS # (AUTO) 10.5 X10'3 (1.8-7.7); NEUTROPHILS % (AUTO) 87.2 % (42-75); PLATELET COUNT 197 X10'3 (140-440); RED BLOOD COUNT 5.01 X10'6 (4.70-6.10); RED CELL DISTRIBUTION WIDTH 13.4 % (11.5-14.5)
[2020-04-23] MEDS: methylPREDNISolone sod succ/PF 40mg inj. IV SCH ×2 (07:59→20:32)
[2020-04-23] MEDS: lactose-reduced food (Ensure Enlive) - 237ml bottle PO SCH ×4 (08:00→18:16)
[2020-04-23] MEDS: docusate sod 250mg capsule PO SCH (08:00)
[2020-04-23] MEDS: furosemide 40mg/4ml inj IV SCH (08:00)
[2020-04-23] MEDS: K and/or MAG REPLACEMENT MC SCH ×2 (08:00→19:20)
[2020-04-23] MEDS: propranolol 10mg tablet PO SCH ×2 (08:02→20:32)
[2020-04-23] MEDS: tamsulosin 0.4mg capsule PO SCH (08:02)
[2020-04-23] MEDS: pantoprazole 40mg Tablet.DR PO SCH (08:02)
[2020-04-23] MEDS: zinc sulfate 220mg capsule PO SCH (08:02)
[2020-04-23] MEDS: lactobacillus rhamnosus 10,000 MMU CELLS/CAPSULE PO SCH ×2 (08:02→20:32)
[2020-04-23] MEDS: atorvastatin 20mg tablet PO SCH (08:02)
[2020-04-23] MEDS: venlafaxine XR 75mg capsule (Q24H) PO SCH (08:02)
[2020-04-23] MEDS: apixaban 5mg tablet PO SCH ×2 (08:02→20:32)
[2020-04-23] MEDS: gabapentin 300mg capsule PO SCH ×2 (08:02→20:32)
[2020-04-23] MEDS: dronabinol 2.5mg capsule PO SCH ×3 (08:03→17:00)
[2020-04-23] MEDS ORDERED: MESSAGE TO PHARMACY PO ONE (09:25)
[2020-04-23] MEDS ORDERED: dextrose 50%-water 50ml dispensing syringe IV PRN ×2 (09:25)
[2020-04-23] MEDS ORDERED: glucagon, human recombinant 1mg kit SUBCUT PRN (09:25)
[2020-04-23] MEDS ORDERED: dextrose ORAL solution 15 GM/59 ML bottle PO PRN (09:25)
[2020-04-23] MEDS: insulin Lispro (HumaLOG) vial - multi-dose SQ SCH ×3 (09:35→18:27)
--- NOTE | 2020-04-23 18:05 | NUR ---
Problems reprioritized. Patient report given, questions answered & plan of care reviewed with Kiarra CULP .
--- NOTE | 2020-04-23 18:16 | NUR ---
Patient in room CICU 2006. I have received report from Shaquille CULP and had the opportunity to ask questions and assume patient care.
--- NOTE | 2020-04-23 18:17 | NUR ---
0800 ensure non administered. Unclear if it was given by day nurse or not.
[2020-04-23] MEDS: sennosides 8.6mg tablet PO SCH (19:21)
[2020-04-23] MEDS: polyethylene glycol 3350 17gm powd pack PO SCH (19:21)
[2020-04-23] MEDS: insulin glargine (Lantus) pen - multi-dose SQ SCH (21:14)
[2020-04-24] VITALS (23 sets, daily range): BP systolic 105–157; BP diastolic 62–100
[2020-04-24 03:01] LABS: ALANINE AMINOTRANSFERASE 248 U/L (12-78); ALBUMIN 1.9 G/DL (3.4-5.0); ALBUMIN/GLOBULIN RATIO 0.5 (1.1-1.5); ALKALINE PHOSPHATASE 166 IU/L (46-116); ANION GAP 5 (8-16); ASPARTATE AMINO TRANSFERASE 111 U/L (10-37); BILIRUBIN,TOTAL 0.6 MG/DL (0.1-1.0); BLOOD UREA NITROGEN 61 MG/DL (7-18); BUN/CREATININE RATIO 46.2 (5.4-32.0); CALCIUM 8.2 MG/DL (8.5-10.1); CHLORIDE 100 MMOL/L (99-107); CREATININE 1.32 MG/DL (0.60-1.10); GLUCOSE 72 MG/DL (70-104); POTASSIUM 4.6 MMOL/L (3.5-5.1); SODIUM 134 MMOL/L (135-145); TOTAL CARBON DIOXIDE 28.9 MMOL/L (24-32); TOTAL PROTEIN 5.7 G/DL (6.4-8.2); eGFR 52 ML/MIN
[2020-04-24 03:22] LABS: BASOPHILS % (AUTO) 0.3 % (0-1); EOSINOPHILS % (AUTO) 0.2 % (0-6); HEMATOCRIT 44.4 % (42.0-52.0); HEMOGLOBIN 14.9 g/dl (14.0-17.9); LYMPHOCYTES % (AUTO) 6.5 % (21-51); MEAN CORPUSCULAR HEMOGLOBIN 30.9 PG (27.0-31.0); MEAN CORPUSCULAR HGB CONC 33.6 g/dL (33.0-36.5); MEAN CORPUSCULAR VOLUME 92.2 FL (78-98); MEAN PLATELET VOLUME 9.6 FL (7.4-10.4); MONOCYTES # (AUTO) 0.8 X10'3 (0-0.9); NEUTROPHILS # (AUTO) 14.2 X10'3 (1.8-7.7); PLATELET COUNT 211 X10'3 (140-440); RED BLOOD COUNT 4.82 X10'6 (4.70-6.10); RED CELL DISTRIBUTION WIDTH 13.7 % (11.5-14.5); WHITE BLOOD COUNT 16.1 X10'3 (4.5-11.0)
--- NOTE | 2020-04-24 06:26 | NUR ---
Problems reprioritized. Patient report given, questions answered & plan of care reviewed with Fabien RN.
--- NOTE | 2020-04-24 06:30 | NUR ---
Patient in room CICU 2006. I have received report from ROBBI SLADE and had the opportunity to ask questions and assume patient care.
[2020-04-24] MEDS: docusate sod 250mg capsule PO SCH (07:06)
[2020-04-24] MEDS: dronabinol 2.5mg capsule PO SCH ×3 (07:19→17:08)
[2020-04-24] MEDS: furosemide 40mg/4ml inj IV SCH (07:58)
[2020-04-24] MEDS: K and/or MAG REPLACEMENT MC SCH ×2 (08:00→20:00)
[2020-04-24] MEDS: methylPREDNISolone sod succ/PF 40mg inj. IV SCH ×2 (08:01→21:57)
[2020-04-24] MEDS: lactobacillus rhamnosus 10,000 MMU CELLS/CAPSULE PO SCH ×2 (08:02→21:58)
[2020-04-24] MEDS: venlafaxine XR 75mg capsule (Q24H) PO SCH (08:03)
[2020-04-24] MEDS: lactose-reduced food (Ensure Enlive) - 237ml bottle PO SCH ×3 (08:04→18:00)
[2020-04-24] MEDS: apixaban 5mg tablet PO SCH ×2 (08:04→21:58)
[2020-04-24] MEDS: tamsulosin 0.4mg capsule PO SCH (08:04)
[2020-04-24] MEDS: atorvastatin 20mg tablet PO SCH (08:05)
[2020-04-24] MEDS: propranolol 10mg tablet PO SCH ×2 (08:05→21:57)
[2020-04-24] MEDS: gabapentin 300mg capsule PO SCH ×2 (08:07→21:55)
[2020-04-24] MEDS: pantoprazole 40mg Tablet.DR PO SCH (08:08)
[2020-04-24] MEDS: zinc sulfate 220mg capsule PO SCH (08:09)
[2020-04-24] MEDS: insulin Lispro (HumaLOG) vial - multi-dose SQ SCH ×2 (08:32→14:11)
[2020-04-24] MEDS: normal saline 1000ml 1,000 ML IV SCH (15:50)
--- NOTE | 2020-04-24 18:27 | NUR ---
Problems reprioritized. Patient report given, questions answered & plan of care reviewed with rod rn.
--- NOTE | 2020-04-24 18:30 | NUR ---
Patient in room CICU 2006. I have received report from Fabien CULP and had the opportunity to ask questions and assume patient care.
[2020-04-24] MEDS: insulin glargine (Lantus) pen - multi-dose SQ SCH (21:00)
[2020-04-24] MEDS: sennosides 8.6mg tablet PO SCH (21:00)
[2020-04-24] MEDS: polyethylene glycol 3350 17gm powd pack PO SCH (21:00)
[2020-04-25] VITALS (24 sets, daily range): BP systolic 110–143; BP diastolic 60–83
[2020-04-25 03:05] LABS: BASOPHILS % (AUTO) 0.3 % (0-1); EOSINOPHILS % (AUTO) 0.2 % (0-6); HEMATOCRIT 42.7 % (42.0-52.0); HEMOGLOBIN 14.3 g/dl (14.0-17.9); LYMPHOCYTES % (AUTO) 7.1 % (21-51); MEAN CORPUSCULAR HEMOGLOBIN 30.8 PG (27.0-31.0); MEAN CORPUSCULAR HGB CONC 33.6 g/dL (33.0-36.5); MEAN CORPUSCULAR VOLUME 91.6 FL (78-98); MEAN PLATELET VOLUME 9.4 FL (7.4-10.4); MONOCYTES # (AUTO) 0.8 X10'3 (0-0.9); MONOCYTES % (AUTO) 5.6 % (2-12); NEUTROPHILS # (AUTO) 12.3 X10'3 (1.8-7.7); NEUTROPHILS % (AUTO) 86.8 % (42-75); PLATELET COUNT 183 X10'3 (140-440); RED BLOOD COUNT 4.66 X10'6 (4.70-6.10); RED CELL DISTRIBUTION WIDTH 13.3 % (11.5-14.5); WHITE BLOOD COUNT 14.1 X10'3 (4.5-11.0)
[2020-04-25 03:28] LABS: ALANINE AMINOTRANSFERASE 237 U/L (12-78); ALBUMIN 1.9 G/DL (3.4-5.0); ALBUMIN/GLOBULIN RATIO 0.5 (1.1-1.5); ALKALINE PHOSPHATASE 170 IU/L (46-116); ANION GAP 4 (8-16); ASPARTATE AMINO TRANSFERASE 107 U/L (10-37); BILIRUBIN,TOTAL 0.8 MG/DL (0.1-1.0); BLOOD UREA NITROGEN 58 MG/DL (7-18); BUN/CREATININE RATIO 40.8 (5.4-32.0); CHLORIDE 96 MMOL/L (99-107); CREATININE 1.42 MG/DL (0.60-1.10); GLUCOSE 145 MG/DL (70-104); POTASSIUM 4.5 MMOL/L (3.5-5.1); SODIUM 132 MMOL/L (135-145); TOTAL PROTEIN 5.5 G/DL (6.4-8.2); eGFR 48 ML/MIN
--- NOTE | 2020-04-25 06:19 | NUR ---
Problems reprioritized. Patient report given, questions answered & plan of care reviewed with Kavitha CULP.
--- NOTE | 2020-04-25 06:21 | NUR ---
Patient in room CICU 2006. I have received report from Lor CULP and had the opportunity to ask questions and assume patient care.
[2020-04-25] MEDS: dronabinol 2.5mg capsule PO SCH ×3 (07:00→17:22)
[2020-04-25] MEDS: apixaban 5mg tablet PO SCH ×2 (07:58→20:35)
[2020-04-25] MEDS: pantoprazole 40mg Tablet.DR PO SCH (07:58)
[2020-04-25] MEDS: zinc sulfate 220mg capsule PO SCH (07:59)
[2020-04-25] MEDS: tamsulosin 0.4mg capsule PO SCH (07:59)
[2020-04-25] MEDS: furosemide 40mg/4ml inj IV SCH (07:59)
[2020-04-25] MEDS: gabapentin 300mg capsule PO SCH ×2 (07:59→20:35)
[2020-04-25] MEDS: lactobacillus rhamnosus 10,000 MMU CELLS/CAPSULE PO SCH ×2 (07:59→20:36)
[2020-04-25] MEDS: venlafaxine XR 75mg capsule (Q24H) PO SCH (07:59)
[2020-04-25] MEDS: methylPREDNISolone sod succ/PF 40mg inj. IV SCH ×2 (07:59→20:36)
[2020-04-25] MEDS: atorvastatin 20mg tablet PO SCH (07:59)
[2020-04-25] MEDS: docusate sod 250mg capsule PO SCH (08:16)
[2020-04-25] MEDS: propranolol 10mg tablet PO SCH ×2 (08:17→20:36)
[2020-04-25] MEDS: lactose-reduced food (Ensure Enlive) - 237ml bottle PO SCH ×3 (08:17→18:00)
[2020-04-25] MEDS: insulin Lispro (HumaLOG) vial - multi-dose SQ SCH ×2 (08:25→13:19)
[2020-04-25] MEDS: K and/or MAG REPLACEMENT MC SCH ×2 (08:34→20:00)
--- NOTE | 2020-04-25 11:29 | NUR ---
F/u 04/25: Pt PO improving to 50-75% avg meals past 2 days w/ fluctuating ensure enlive PO ~50-75% w/ 0% at times. Much improved from prior PO fluctuations; noted to have significant respiratory improvement per RN today. Marinol held today; previously receiving. LBM 04/24. Will continue to monitor for PO hx; consider change to ensure high protein ONS if PO persistently improves given DM hx. Recommendations: 1) Continue carb controlled diet, chop all foods 2) Ensure Enlive TID; monitor for change to ensure high protein as PO improves 3) hold smoothie and shake for now given increased PO w/ DM 4) Appetite stimulant per MD 5) Routine bowel care 6) Scaled weights per rx Addendum: 04/25/20 at [address] Amended: Links added.
--- NOTE | 2020-04-25 16:54 | NUR ---
Hearing aids causing breakdown on top of ears, patient states he normally takes them off at night. Gauze in place for protection.
[2020-04-25] MEDS: polyethylene glycol 3350 17gm powd pack PO SCH (20:35)
[2020-04-25] MEDS: sennosides 8.6mg tablet PO SCH (20:35)
[2020-04-25] MEDS: insulin glargine (Lantus) pen - multi-dose SQ SCH (21:00)
[2020-04-26] VITALS (24 sets, daily range): BP systolic 110–138; BP diastolic 63–78
[2020-04-26 05:26] LABS: BASOPHILS % (AUTO) 0.3 % (0-1); EOSINOPHILS % (AUTO) 0.1 % (0-6); HEMATOCRIT 41.1 % (42.0-52.0); HEMOGLOBIN 13.8 g/dl (14.0-17.9); LYMPHOCYTES % (AUTO) 8.9 % (21-51); MEAN CORPUSCULAR HEMOGLOBIN 30.9 PG (27.0-31.0); MEAN CORPUSCULAR HGB CONC 33.6 g/dL (33.0-36.5); MEAN CORPUSCULAR VOLUME 91.8 FL (78-98); MEAN PLATELET VOLUME 9.8 FL (7.4-10.4); MONOCYTES # (AUTO) 0.7 X10'3 (0-0.9); MONOCYTES % (AUTO) 5.8 % (2-12); NEUTROPHILS # (AUTO) 9.7 X10'3 (1.8-7.7); NEUTROPHILS % (AUTO) 84.9 % (42-75); PLATELET COUNT 163 X10'3 (140-440); RED BLOOD COUNT 4.48 X10'6 (4.70-6.10); RED CELL DISTRIBUTION WIDTH 13.6 % (11.5-14.5); WHITE BLOOD COUNT 11.5 X10'3 (4.5-11.0)
[2020-04-26 05:36] LABS: ALBUMIN 1.9 G/DL (3.4-5.0); ANION GAP 4 (8-16); BLOOD UREA NITROGEN 54 MG/DL (7-18); BUN/CREATININE RATIO 39.4 (5.4-32.0); CALCIUM 7.9 MG/DL (8.5-10.1); CHLORIDE 98 MMOL/L (99-107); CREATININE 1.37 MG/DL (0.60-1.10); GLUCOSE 212 MG/DL (70-104); POTASSIUM 4.7 MMOL/L (3.5-5.1); SODIUM 134 MMOL/L (135-145); TOTAL CARBON DIOXIDE 32.4 MMOL/L (24-32); eGFR 50 ML/MIN
--- NOTE | 2020-04-26 06:45 | NUR ---
RECEIVED REPORT FROM EDUARDO CULP
[2020-04-26] MEDS: furosemide 40mg/4ml inj IV SCH (07:58)
[2020-04-26] MEDS: K and/or MAG REPLACEMENT MC SCH ×2 (08:00→20:00)
[2020-04-26] MEDS: methylPREDNISolone sod succ/PF 40mg inj. IV SCH ×2 (08:00→19:49)
[2020-04-26] MEDS: lactobacillus rhamnosus 10,000 MMU CELLS/CAPSULE PO SCH ×2 (08:01→19:49)
[2020-04-26] MEDS: gabapentin 300mg capsule PO SCH ×2 (08:01→19:49)
[2020-04-26] MEDS: docusate sod 250mg capsule PO SCH (08:01)
[2020-04-26] MEDS: venlafaxine XR 75mg capsule (Q24H) PO SCH (08:01)
[2020-04-26] MEDS: tamsulosin 0.4mg capsule PO SCH (08:01)
[2020-04-26] MEDS: pantoprazole 40mg Tablet.DR PO SCH (08:02)
[2020-04-26] MEDS: lactose-reduced food (Ensure Enlive) - 237ml bottle PO SCH ×3 (08:02→18:04)
[2020-04-26] MEDS: zinc sulfate 220mg capsule PO SCH (08:02)
[2020-04-26] MEDS: atorvastatin 20mg tablet PO SCH (08:02)
[2020-04-26] MEDS: apixaban 5mg tablet PO SCH ×2 (08:02→19:49)
[2020-04-26] MEDS: propranolol 10mg tablet PO SCH ×2 (08:02→19:49)
[2020-04-26] MEDS: dronabinol 2.5mg capsule PO SCH ×3 (09:51→16:54)
[2020-04-26] MEDS: insulin Lispro (HumaLOG) vial - multi-dose SQ SCH ×3 (14:03→22:07)
[2020-04-26] MEDS: normal saline 1000ml 1,000 ML IV SCH (16:38)
--- NOTE | 2020-04-26 18:30 | NUR ---
Patient in room [facility] 2006. I have received report from Gia CULP and had the opportunity to ask questions and assume patient care. Addendum: 04/26/20 at 1936 by Mariah Hanks RN Amended: Links added.
[2020-04-26] MEDS: sennosides 8.6mg tablet PO SCH (21:00)
[2020-04-26] MEDS: polyethylene glycol 3350 17gm powd pack PO SCH (22:05)
[2020-04-26] MEDS: insulin glargine (Lantus) pen - multi-dose SQ SCH (22:09)
--- NOTE | 2020-04-26 23:23 | NUR ---
Patient appears to be sleeping. maintaining sats:94% on 30L/40%FiO2. Will continue to monitor.
[2020-04-27] VITALS (23 sets, daily range): BP systolic 92–142; BP diastolic 51–78
--- NOTE | 2020-04-27 06:21 | NUR ---
Problems reprioritized. Patient report given, questions answered & plan of care reviewed with Nguyễn CULP.
[2020-04-27] MEDS: dronabinol 2.5mg capsule PO SCH ×4 (07:00→17:00)
[2020-04-27 07:44] LABS: BASOPHILS # (AUTO) 0.1 X10'3 (0-0.2); BASOPHILS % (AUTO) 0.7 % (0-1); EOSINOPHILS % (AUTO) 0.3 % (0-6); HEMATOCRIT 45.2 % (42.0-52.0); LYMPHOCYTES # (AUTO) 1.6 X10'3 (1.1-4.8); LYMPHOCYTES % (AUTO) 13.4 % (21-51); MEAN CORPUSCULAR HEMOGLOBIN 30.8 PG (27.0-31.0); MEAN CORPUSCULAR HGB CONC 33.3 g/dL (33.0-36.5); MEAN CORPUSCULAR VOLUME 92.3 FL (78-98); MONOCYTES # (AUTO) 0.6 X10'3 (0-0.9); MONOCYTES % (AUTO) 5.5 % (2-12); NEUTROPHILS # (AUTO) 9.3 X10'3 (1.8-7.7); NEUTROPHILS % (AUTO) 80.1 % (42-75); PLATELET COUNT 168 X10'3 (140-440); RED BLOOD COUNT 4.89 X10'6 (4.70-6.10); RED CELL DISTRIBUTION WIDTH 13.7 % (11.5-14.5); WHITE BLOOD COUNT 11.6 X10'3 (4.5-11.0)
[2020-04-27 07:59] LABS: ALANINE AMINOTRANSFERASE 156 U/L (12-78); ALBUMIN 2.1 G/DL (3.4-5.0); ALBUMIN/GLOBULIN RATIO 0.6 (1.1-1.5); ALKALINE PHOSPHATASE 158 IU/L (46-116); ANION GAP 3 (8-16); ASPARTATE AMINO TRANSFERASE 52 U/L (10-37); BILIRUBIN,TOTAL 0.7 MG/DL (0.1-1.0); BLOOD UREA NITROGEN 48 MG/DL (7-18); CALCIUM 8.2 MG/DL (8.5-10.1); CHLORIDE 99 MMOL/L (99-107); CREATININE 1.17 MG/DL (0.60-1.10); GLUCOSE 89 MG/DL (70-104); MAGNESIUM 2.2 MG/DL (1.5-2.4); PHOSPHORUS 3.5 MG/DL (2.3-4.5); POTASSIUM 4.2 MMOL/L (3.5-5.1); SODIUM 137 MMOL/L (135-145); TOTAL CARBON DIOXIDE 34.6 MMOL/L (24-32); TOTAL PROTEIN 5.8 G/DL (6.4-8.2); eGFR 60 ML/MIN
[2020-04-27] MEDS: lactose-reduced food (Ensure Enlive) - 237ml bottle PO SCH ×3 (08:00→18:00)
[2020-04-27] MEDS: K and/or MAG REPLACEMENT MC SCH ×2 (08:00→20:00)
[2020-04-27] MEDS: furosemide 40mg/4ml inj IV SCH (09:29)
[2020-04-27] MEDS: zinc sulfate 220mg capsule PO SCH (09:29)
[2020-04-27] MEDS: propranolol 10mg tablet PO SCH ×2 (09:30→21:51)
[2020-04-27] MEDS: gabapentin 300mg capsule PO SCH ×2 (09:30→21:52)
[2020-04-27] MEDS: lactobacillus rhamnosus 10,000 MMU CELLS/CAPSULE PO SCH ×2 (09:31→21:51)
[2020-04-27] MEDS: pantoprazole 40mg Tablet.DR PO SCH (09:31)
[2020-04-27] MEDS: tamsulosin 0.4mg capsule PO SCH (09:32)
[2020-04-27] MEDS: venlafaxine XR 75mg capsule (Q24H) PO SCH (09:32)
[2020-04-27] MEDS: atorvastatin 20mg tablet PO SCH (09:32)
[2020-04-27] MEDS: apixaban 5mg tablet PO SCH ×2 (09:32→21:51)
[2020-04-27] MEDS: docusate sod 250mg capsule PO SCH (09:32)
[2020-04-27] MEDS: insulin Lispro (HumaLOG) vial - multi-dose SQ SCH ×2 (16:33→19:14)
--- NOTE | 2020-04-27 18:30 | NUR ---
[facility] 2006. I have received report from Omero CULP and had the opportunity to ask questions and assume patient care. Addendum: 04/27/20 at 1933 by Mariah Hanks RN Amended: Links added.
--- NOTE | 2020-04-27 18:31 | NUR ---
Problems reprioritized. Patient report given, questions answered & plan of care reviewed with Mariah CULP.
[2020-04-27] MEDS: sennosides 8.6mg tablet PO SCH (21:51)
[2020-04-27] MEDS: polyethylene glycol 3350 17gm powd pack PO SCH (21:52)
[2020-04-27] MEDS: insulin glargine (Lantus) pen - multi-dose SQ SCH (21:57)
[2020-04-28] VITALS (18 sets, daily range): BP systolic 92–129; BP diastolic 47–82
--- NOTE | 2020-04-28 03:39 | NUR ---
Patient maintaining sat of 94% on HiFlo. Appears to be sleeping, will continue to monitor.
--- NOTE | 2020-04-28 06:20 | NUR ---
Problems reprioritized. Patient report given, questions answered & plan of care reviewed with Omero CULP.
[2020-04-28 06:22] LABS: ALANINE AMINOTRANSFERASE 127 U/L (12-78); ALBUMIN 2.2 G/DL (3.4-5.0); ALBUMIN/GLOBULIN RATIO 0.6 (1.1-1.5); ALKALINE PHOSPHATASE 171 IU/L (46-116); ANION GAP 5 (8-16); ASPARTATE AMINO TRANSFERASE 51 U/L (10-37); BILIRUBIN,TOTAL 0.8 MG/DL (0.1-1.0); BLOOD UREA NITROGEN 50 MG/DL (7-18); BUN/CREATININE RATIO 43.1 (5.4-32.0); CALCIUM 8.5 MG/DL (8.5-10.1); CHLORIDE 97 MMOL/L (99-107); CREATININE 1.16 MG/DL (0.60-1.10); GLUCOSE 60 MG/DL (70-104); MAGNESIUM 2.1 MG/DL (1.5-2.4); PHOSPHORUS 3.7 MG/DL (2.3-4.5); SODIUM 136 MMOL/L (135-145); TOTAL CARBON DIOXIDE 34.5 MMOL/L (24-32); TOTAL PROTEIN 5.9 G/DL (6.4-8.2); eGFR 61 ML/MIN
[2020-04-28 06:24] LABS: BASOPHILS % (AUTO) 0.2 % (0-1); EOSINOPHILS # (AUTO) 0.1 X10'3 (0-0.9); EOSINOPHILS % (AUTO) 0.4 % (0-6); HEMATOCRIT 43.6 % (42.0-52.0); HEMOGLOBIN 14.8 g/dl (14.0-17.9); LYMPHOCYTES # (AUTO) 1.5 X10'3 (1.1-4.8); LYMPHOCYTES % (AUTO) 10.3 % (21-51); MEAN CORPUSCULAR HEMOGLOBIN 31.1 PG (27.0-31.0); MEAN CORPUSCULAR VOLUME 91.4 FL (78-98); MEAN PLATELET VOLUME 9.8 FL (7.4-10.4); MONOCYTES # (AUTO) 0.9 X10'3 (0-0.9); MONOCYTES % (AUTO) 6.4 % (2-12); NEUTROPHILS # (AUTO) 12.1 X10'3 (1.8-7.7); NEUTROPHILS % (AUTO) 82.7 % (42-75); PLATELET COUNT 193 X10'3 (140-440); RED BLOOD COUNT 4.77 X10'6 (4.70-6.10); RED CELL DISTRIBUTION WIDTH 13.8 % (11.5-14.5); WHITE BLOOD COUNT 14.7 X10'3 (4.5-11.0)
[2020-04-28] MEDS: dronabinol 2.5mg capsule PO SCH ×2 (07:00→11:00)
[2020-04-28] MEDS: atorvastatin 20mg tablet PO SCH (07:29)
[2020-04-28] MEDS: zinc sulfate 220mg capsule PO SCH (07:29)
[2020-04-28] MEDS: venlafaxine XR 75mg capsule (Q24H) PO SCH (07:30)
[2020-04-28] MEDS: propranolol 10mg tablet PO SCH ×2 (07:30→20:00)
[2020-04-28] MEDS: lactobacillus rhamnosus 10,000 MMU CELLS/CAPSULE PO SCH ×2 (07:30→20:00)
[2020-04-28] MEDS: tamsulosin 0.4mg capsule PO SCH (07:30)
[2020-04-28] MEDS: apixaban 5mg tablet PO SCH ×2 (07:30→20:00)
[2020-04-28] MEDS: gabapentin 300mg capsule PO SCH ×2 (07:30→20:00)
[2020-04-28] MEDS: pantoprazole 40mg Tablet.DR PO SCH (07:30)
[2020-04-28] MEDS: dextrose ORAL solution 15 GM/59 ML bottle PO PRN (07:30)
[2020-04-28] MEDS: docusate sod 250mg capsule PO SCH (07:30)
[2020-04-28] MEDS: furosemide 40mg/4ml inj IV SCH (07:30)
[2020-04-28] MEDS: K and/or MAG REPLACEMENT MC SCH ×2 (08:00→20:00)
[2020-04-28] MEDS: lactose-reduced food (Ensure Enlive) - 237ml bottle PO SCH ×3 (08:49→18:43)
[2020-04-28] MEDS: predniSONE 20 mg tablet PO SCH (09:16)
[2020-04-28] MEDS: insulin Lispro (HumaLOG) vial - multi-dose SQ SCH ×3 (09:18→19:27)
--- NOTE | 2020-04-28 13:48 | NUR ---
Reassessment: Pt with significant improvement in PO intake, documented with 25-50% PO intake of meals with 75-100% PO intake of ONS. Combined PO intake of meals and ONS meeting roughly 48-78% EEN and 55-88% EPN. Patient's oxygen requirement is much better per MD notes, likely contributing to increased PO intake. LBM 04/24, receiving routine bowel care. Will continue to follow closely and monitor need for further nutrition intervention. Recommendations: 1) Continue carb controlled diet, chop all foods 2) Ensure Enlive TID; monitor for change to ensure high protein as PO improves 3) Routine bowel care 4) Scaled weights per rx Addendum: 04/28/20 at [address] Amended: Links added.
--- NOTE | 2020-04-28 15:31 | NUR ---
Problems reprioritized. Patient report given, questions answered & plan of care reviewed with Lilibeth CULP.
--- NOTE | 2020-04-28 18:08 | NUR ---
Problems reprioritized. Patient report given, questions answered & plan of care reviewed with Aj CULP.
[2020-04-28] MEDS: polyethylene glycol 3350 17gm powd pack PO SCH (21:03)
[2020-04-28] MEDS: sennosides 8.6mg tablet PO SCH (21:03)
[2020-04-28] MEDS: insulin glargine (Lantus) pen - multi-dose SQ SCH (21:19)
[2020-04-29 03:00] VITALS: BP 95/57
[2020-04-29 06:00] VITALS: BP 114/75
--- NOTE | 2020-04-29 06:00 | NUR ---
Patient in room PCU 3013. I have received report from CLEMENTE and had the opportunity to ask questions and assume patient care.
--- NOTE | 2020-04-29 06:20 | NUR ---
Patient in room PCU 3013. I have received report from Aj CULP and had the opportunity to ask questions and assume patient care.
--- NOTE | 2020-04-29 06:50 | NUR ---
Pt's blood sugar 67. 1 glucose shot administered. Will recheck blood sugar in 15 minutes.
[2020-04-29] MEDS: dextrose ORAL solution 15 GM/59 ML bottle PO PRN (06:54)
--- NOTE | 2020-04-29 07:05 | NUR ---
Re-checked Pt's blood sugar: 110
[2020-04-29] MEDS: docusate sod 250mg capsule PO SCH (07:38)
[2020-04-29] MEDS: propranolol 10mg tablet PO SCH ×2 (07:38→20:05)
[2020-04-29] MEDS: zinc sulfate 220mg capsule PO SCH (07:38)
[2020-04-29] MEDS: tamsulosin 0.4mg capsule PO SCH (07:38)
[2020-04-29] MEDS: apixaban 5mg tablet PO SCH ×2 (07:39→20:05)
[2020-04-29] MEDS: venlafaxine XR 75mg capsule (Q24H) PO SCH (07:39)
[2020-04-29] MEDS: atorvastatin 20mg tablet PO SCH (07:39)
[2020-04-29] MEDS: lactobacillus rhamnosus 10,000 MMU CELLS/CAPSULE PO SCH ×2 (07:39→20:05)
[2020-04-29] MEDS: gabapentin 300mg capsule PO SCH ×2 (07:39→20:05)
[2020-04-29] MEDS: pantoprazole 40mg Tablet.DR PO SCH (07:40)
[2020-04-29] MEDS: predniSONE 20 mg tablet PO SCH (07:40)
[2020-04-29] MEDS: K and/or MAG REPLACEMENT MC SCH ×2 (08:00→20:00)
[2020-04-29] MEDS: lactose-reduced food (Ensure Enlive) - 237ml bottle PO SCH ×4 (08:46→22:15)
[2020-04-29] MEDS: insulin Lispro (HumaLOG) vial - multi-dose SQ SCH ×4 (09:43→22:09)
[2020-04-29 11:00] VITALS: BP 110/66
[2020-04-29 15:00] VITALS: BP 116/64
[2020-04-29 18:00] VITALS: BP 133/68
--- NOTE | 2020-04-29 18:00 | NUR ---
orientee documentation: I have reviewed and agree with all interventions, assessments performed and documented by Ana Paula CULP.
--- NOTE | 2020-04-29 18:18 | NUR ---
Problems reprioritized. Patient report given, questions answered & plan of care reviewed with AMEE CULP.
--- NOTE | 2020-04-29 18:18 | NUR ---
Problems reprioritized. Patient report given, questions answered & plan of care reviewed with Isma CULP.
--- NOTE | 2020-04-29 18:30 | NUR ---
Patient in room PCU 3013. I have received report from ROBBI Sanchez and had the opportunity to ask questions and assume patient care. Safety measures in place, bed in low and locked position. Call light and personal items within reach. Will continue to monitor for remainder of shift.
[2020-04-29] MEDS: polyethylene glycol 3350 17gm powd pack PO SCH (20:21)
[2020-04-29] MEDS: sennosides 8.6mg tablet PO SCH (20:22)
[2020-04-29 22:00] VITALS: BP 139/71
[2020-04-29] MEDS: insulin glargine (Lantus) pen - multi-dose SQ SCH (22:06)
[2020-04-30 02:00] VITALS: BP 136/65
--- NOTE | 2020-04-30 03:17 | NUR ---
Spot checked blood glucose level due to previous low blood sugars, patient had a blood sugar of 90. Encouraged him to drink his ensure.
[2020-04-30 06:00] VITALS: BP 129/67
--- NOTE | 2020-04-30 06:00 | NUR ---
Patient in room PCU 3013. I have received report from AMEE CULP and had the opportunity to ask questions and assume patient care.
--- NOTE | 2020-04-30 06:30 | NUR ---
Patient in room PCU 3013. I have received report from Isma CULP and had the opportunity to ask questions and assume patient care.
--- NOTE | 2020-04-30 07:00 | NUR ---
Problems reprioritized. Patient report given, questions answered & plan of care reviewed with ROBBI Sanchez. Care plan followed, medications given as ordered. Safety measures in place, bed in low and position. Call light and personal items within reach. Will continue to monitor for remainder of shift.
[2020-04-30] MEDS: K and/or MAG REPLACEMENT MC SCH (08:00)
[2020-04-30] MEDS: insulin Lispro (HumaLOG) vial - multi-dose SQ SCH ×2 (08:19→14:27)
[2020-04-30] MEDS: predniSONE 20 mg tablet PO SCH (08:21)
[2020-04-30] MEDS: zinc sulfate 220mg capsule PO SCH (08:21)
[2020-04-30] MEDS: docusate sod 250mg capsule PO SCH (08:21)
[2020-04-30] MEDS: propranolol 10mg tablet PO SCH (08:21)
[2020-04-30] MEDS: apixaban 5mg tablet PO SCH (08:22)
[2020-04-30] MEDS: gabapentin 300mg capsule PO SCH (08:22)
[2020-04-30] MEDS: tamsulosin 0.4mg capsule PO SCH (08:22)
[2020-04-30] MEDS: atorvastatin 20mg tablet PO SCH (08:23)
[2020-04-30] MEDS: lactobacillus rhamnosus 10,000 MMU CELLS/CAPSULE PO SCH (08:23)
[2020-04-30] MEDS: venlafaxine XR 75mg capsule (Q24H) PO SCH (08:23)
[2020-04-30] MEDS: pantoprazole 40mg Tablet.DR PO SCH (08:23)
[2020-04-30 11:00] VITALS: BP 101/65
[2020-04-30] MEDS: lactose-reduced food (Ensure Enlive) - 237ml bottle PO SCH (13:00)
--- NOTE | 2020-04-30 13:30 | NUR ---
Per Dr. Davis; Administer 10 units Lantus now and then turn insulin drip off after one hour. Turn Normal saline down to 50ml/hr. Order a clear liquid diet for Pt. Order a Lipase. Addendum: 04/30/20 at 1447 by Daniel Junior RN wrong Pt.
--- NOTE | 2020-04-30 16:43 | NUR ---
REPORT CALLED TO [facility] AT 1500, SPOKE WITH JACOBY. PATIENTS IV REMOVED, WELL TELE. ALL BELONGINGS WHERE SENT WITH PATIENT. HE LEFT [facility] AT 1630 ON A GURNEY VIA [facility], VS WITHIN RANGE AND IN NO APPARENT DISTRESS.
== END 2020-04-30 16:33 | DRG 177 ==
LOC: ER 17:42 → ED HOLD 20:07 → PCU 3S 21:50 → CICU 2S 04-13 14:52 → PCU 3S 04-28 15:13
PROVIDERS: ADMIT Family Medicine; ATTEND Internal Medicine Infectious Disease
DX: U07.1 COVID-19 (principal); J96.91 Respiratory failure, unspecified with hypoxia; E78.00 Pure hypercholesterolemia, unspecified; N40.0 Benign prostatic hyperplasia without lower urinary tract symptoms; Z96.611 Presence of right artificial shoulder joint; Z80.8 Family history of malignant neoplasm of other organs or systems; Z80.7 Family history of other malignant neoplasms of lymphoid, hematopoietic and related tissues; I48.91 Unspecified atrial fibrillation; E78.5 Hyperlipidemia, unspecified; G89.29 Other chronic pain; K21.9 Gastro-esophageal reflux disease without esophagitis; M19.90 Unspecified osteoarthritis, unspecified site; M54.9 Dorsalgia, unspecified; E11.42 Type 2 diabetes mellitus with diabetic polyneuropathy; Z88.8 Allergy status to other drugs, medicaments and biological substances; E11.22 Type 2 diabetes mellitus with diabetic chronic kidney disease; I12.9 Hypertensive chronic kidney disease with stage 1 through stage 4 chronic kidney disease, or unspecified chronic kidney disease; N18.9 Chronic kidney disease, unspecified; E11.65 Type 2 diabetes mellitus with hyperglycemia; J98.8 Other specified respiratory disorders
CPT/HCPCS: 36415; 36600; 71045; 80048; 80053; 81001; 82803; 82948; 83605; 83615; 83735; 83880; 84100; 84145; 84484; 85018; 85025; 85379; 86140; 86592; 87040; 87081; 93005; 94640; 94668; 94760; 96374; 96375; 97110; 97162; 97530; 97535; 99285; G0378; J0360; J0692; J1100; J1815; J1940; J2270; J2405; J2920; J2930; J3490; J7030; J7512; Q0167

== ENCOUNTER 2020-07-07 13:04 | Emergency (ER) | payer MEDICARE, OTHER ==
[~2020-07-07] VITALS: Ht 193 cm; Wt 127.3 kg
[~2020-07-07 13:04] MED LIST changes: -DEC4T PO; +FLO0.4C PO; -tamsulosin capsule PO
[2020-07-07] MEDS ORDERED: normal saline 1000ML IV soln IV ONE (13:30)
[2020-07-07 14:06] LABS: CLARITY,URINE CLOUDY (Clear); COLOR,URINE YELLOW (Yellow); GLUCOSE, URINE NEGATIVE (Neg); KETONES,URINE 15 mg/dl (Neg); LEUKOCYTE ESTERASE ,URINE MODERATE (Neg); NITRITES, URINE NEGATIVE (Neg); OCCULT BLOOD,URINE MODERATE (Neg); PH,URINE 6.5 (4.8-8.0); PROTEIN,URINE 100 mg/dl (Neg); UROBILINOGEN,URINE >=8.0 E.U/dL (0.2-1.0)
[2020-07-07 14:12] LABS: UA COLLECTION TYPE FOLEY CATH
[2020-07-07 14:13] LABS: BACTERIA,URINE 3+ /HPF (Neg); WBC,URINE TNTC /HPF (0-4)
[2020-07-07 14:14] LABS: RBC,URINE 0-2 /HPF (0-2)
[2020-07-07 14:15] LABS: SQUAMOUS EPITHELIAL CELL,UR FEW /LPF (FEW)
[2020-07-07 14:21] LABS: BASOPHILS % (AUTO) 0.2 % (0-1); EOSINOPHILS # (AUTO) 0.1 X10'3 (0-0.9); HEMATOCRIT 37.8 % (42.0-52.0); HEMOGLOBIN 12.8 g/dl (14.0-17.9); LYMPHOCYTES # (AUTO) 1.3 X10'3 (1.1-4.8); LYMPHOCYTES % (AUTO) 13.7 % (21-51); MEAN CORPUSCULAR HEMOGLOBIN 30.3 PG (27.0-31.0); MEAN CORPUSCULAR HGB CONC 33.8 g/dL (33.0-36.5); MEAN CORPUSCULAR VOLUME 89.6 FL (78-98); MEAN PLATELET VOLUME 8.3 FL (7.4-10.4); MONOCYTES # (AUTO) 0.7 X10'3 (0-0.9); MONOCYTES % (AUTO) 7.1 % (2-12); NEUTROPHILS # (AUTO) 7.6 X10'3 (1.8-7.7); PLATELET COUNT 285 X10'3 (140-440); RED BLOOD COUNT 4.22 X10'6 (4.70-6.10); RED CELL DISTRIBUTION WIDTH 14.5 % (11.5-14.5); WHITE BLOOD COUNT 9.8 X10'3 (4.5-11.0)
[2020-07-07] MEDS ORDERED: normal saline 1000ml 1,000 ML IV ONE (14:25)
[2020-07-07] MEDS ORDERED: CefTRIAXone/D5W-Rocephin 1gm 50 ML IV ONE (14:25)
[2020-07-07 14:31] LABS: ALANINE AMINOTRANSFERASE 89 U/L (12-78); ALBUMIN 2.2 G/DL (3.4-5.0); ALBUMIN/GLOBULIN RATIO 0.5 (1.1-1.5); ALKALINE PHOSPHATASE 145 IU/L (46-116); ANION GAP 10 (8-16); ASPARTATE AMINO TRANSFERASE 112 U/L (10-37); BILIRUBIN,TOTAL 0.5 MG/DL (0.1-1.0); BLOOD UREA NITROGEN 18 MG/DL (7-18); BUN/CREATININE RATIO 15.5 (5.4-32.0); CALCIUM 8.6 MG/DL (8.5-10.1); CHLORIDE 98 MMOL/L (99-107); CREATININE 1.16 MG/DL (0.60-1.10); GLUCOSE 159 MG/DL (70-104); POTASSIUM 3.6 MMOL/L (3.5-5.1); SODIUM 134 MMOL/L (135-145); TOTAL CARBON DIOXIDE 26.3 MMOL/L (24-32); TOTAL PROTEIN 6.9 G/DL (6.4-8.2); eGFR 61 ML/MIN
[2020-07-07] MEDS ORDERED: BACDS PO (14:39)
[2020-07-07 16:54] VITALS: BP 163/83
== END 2020-07-07 16:54 | disposition home or self-care (01) ==
LOC: ER 13:05
DX: N39.0 Urinary tract infection, site not specified (principal); E86.0 Dehydration; R53.83 Other fatigue; R30.0 Dysuria; R53.81 Other malaise; R53.1 Weakness; E78.00 Pure hypercholesterolemia, unspecified; I10 Essential (primary) hypertension; E11.9 Type 2 diabetes mellitus without complications; G89.29 Other chronic pain; Z98.890 Other specified postprocedural states; Z72.89 Other problems related to lifestyle; Z88.6 Allergy status to analgesic agent; Z88.8 Allergy status to other drugs, medicaments and biological substances; Z79.899 Other long term (current) drug therapy; Z79.4 Long term (current) use of insulin; Z79.2 Long term (current) use of antibiotics
CPT/HCPCS: 36415; 71045; 80053; 81001; 83605; 83735; 84145; 84484; 85025; 87040; 87077; 87088; 87186; 93005; 96361; 96365; 99285; J0696; J7030

== ENCOUNTER 2021-04-03 13:46 | Emergency (ER) | payer OTHER, MEDICARE ==
[~2021-04-03] VITALS: Ht 193 cm; Wt 143.2 kg
[2021-04-03 14:38] VITALS: BP 118/66
[2021-04-03] MEDS ORDERED: BENZ-16 PO (16:58)
== END 2021-04-03 17:24 | disposition home or self-care (01) ==
LOC: ER 13:47
DX: J06.9 Acute upper respiratory infection, unspecified (principal); Z20.822 Contact with and (suspected) exposure to COVID-19; E78.00 Pure hypercholesterolemia, unspecified; I10 Essential (primary) hypertension; N40.0 Benign prostatic hyperplasia without lower urinary tract symptoms; G89.29 Other chronic pain; Z72.89 Other problems related to lifestyle; Z86.16 Personal history of COVID-19; Z88.8 Allergy status to other drugs, medicaments and biological substances; Z79.899 Other long term (current) drug therapy; Z79.4 Long term (current) use of insulin
CPT/HCPCS: 71045; 87635; 99284; C9803

== ENCOUNTER 2021-04-19 14:04 | Emergency (ER) | payer OTHER, MEDICARE ==
[~2021-04-19] VITALS: Ht 193 cm; Wt 140.4 kg
[2021-04-19 15:23] VITALS: BP 166/97
[2021-04-19] MEDS ORDERED: CEPH250T PO (15:26)
[2021-04-19] MEDS ORDERED: SULF1TAB45 PO (15:26)
== END 2021-04-19 15:35 | disposition home or self-care (01) ==
LOC: ER 14:05
DX: N61.0 Mastitis without abscess (principal); E78.00 Pure hypercholesterolemia, unspecified; I10 Essential (primary) hypertension; E11.9 Type 2 diabetes mellitus without complications; G89.29 Other chronic pain; Z98.890 Other specified postprocedural states; Z72.89 Other problems related to lifestyle; Z88.8 Allergy status to other drugs, medicaments and biological substances; Z88.6 Allergy status to analgesic agent; Z79.2 Long term (current) use of antibiotics; Z79.4 Long term (current) use of insulin; Z79.899 Other long term (current) drug therapy
CPT/HCPCS: 99283